=== PATIENT | male | born 1950 | race Caucasian/White ===

== ENCOUNTER 2018-10-22 17:44 | Emergency (ER) | payer MEDICARE, SELFPAY ==
[2018-10-22 17:51] VITALS: BP 118/76; PULSE 66; RESP 20; TEMP 35.6; O2SAT 97; BMI 25.1
--- NOTE | 2018-10-22 18:10 | PC.NURSE ---
Pt made aware of no CT at this facility. Pt has had this problem for months and came to ED for CT as has difficulty scheduling via [facility]. Pt states he does not want to wait and will return another day. Reviewed to return for any increased difficulty / concerns or worsening condition.
== END 2018-10-22 18:12 | disposition left against medical advice (07) ==
PROVIDERS: Emergency Provider Emergency Medicine
DX: Z53.21 Procedure and treatment not carried out due to patient leaving prior to being seen by health care provider (principal)
CPT/HCPCS: 99281

== ENCOUNTER 2018-10-23 14:53 | Emergency (ER) | payer MEDICARE, SELFPAY ==
[2018-10-23 14:57] VITALS: BP 111/76; PULSE 69; RESP 15; TEMP 36.6; O2SAT 96; BMI 25.1
--- NOTE | 2018-10-23 16:35 | PC.NURSE ---
States his PMD called and told him he has an appointment tomorrow for CT
== END 2018-10-23 16:37 | disposition left against medical advice (07) ==
PROVIDERS: Emergency Provider Emergency Medicine
DX: Z53.21 Procedure and treatment not carried out due to patient leaving prior to being seen by health care provider (principal)
CPT/HCPCS: 99282

== ENCOUNTER 2019-03-23 12:25 | Emergency (ER) | payer MEDICARE, OTHER, SELFPAY ==
[2019-03-23] VITALS (8 sets, daily range): BP systolic 98–110; BP diastolic 60–72; PULSE 47–57; RESP 12–20; TEMP 36.6; O2SAT 96–99
--- NOTE | 2019-03-23 12:31 | DI.RAD.S_ITS ---
PROCEDURE: XR CHEST 1V INDICATIONS: chest pain TECHNIQUE: One view of the chest was acquired. COMPARISON: None. FINDINGS: Surgical changes and devices: None. Lungs and pleura: Increased attenuation is identified at the right lung base. There slight blunting of the right costophrenic angle. Linear interstitial markings are evident at the left lung base. There is no pneumothorax or large effusion. Mediastinum: Mediastinal contours appear normal. Heart size is normal. There is aortic atherosclerosis. Bones and chest wall: No suspicious bony lesions. Multiple right rib deformities are evident. Calcifications within the right hemithorax appear to be present. Overlying soft tissues appear unremarkable. IMPRESSION: 1. Increased attenuation within the lung bases probably is related to atelectasis and/or scarring. A superimposed right basilar pneumonia is difficult to exclude. 2. Trace right sided pleural effusion. 3. Probable chronic right rib fractures. Superimposed calcified pleural plaques are difficult to exclude. Dictated by: Paul Page M.D. on 03/23/2019 at 12:13 Approved by: Paul Page M.D. on 03/23/2019 at 12:15
--- NOTE | 2019-03-23 12:39 | ED.CHESTPAIN ---
HPI - Chest Pain General Chief Complaint: Chest Pain Stated Complaint: Chest discomfort & diaphoretic Time Seen by Provider: 03/23/19 12:31 Source: patient and EMS Mode of arrival: EMS Limitations: no limitations History of Present Illness HPI narrative: Patient is 68-year-old male with history TBI presenting with not feeling right. He states he woke up this morning fine however around 9:00 a.m. he was extremely tired he laid down to take a nap. He woke up he was diaphoretic he noticed some chest heaviness and that his speech might be a little bit off. He spoke to his daughter on the phone who said that his speech was normal. EMS arrived he got aspirin and nitro EN his chest heaviness is gone. He continues to say his speech is not normal but is A&O x3 and has clear speech. He is able to follow directions. He has no numbness tingling or weakness in any of his extremities no facial drooping. Denies any shortness of breath or nausea. MD complaint: chest pain Related Data Home Medications Medication Instructions Recorded Confirmed sildenafil 0 mg PO DIRECTED 03/23/19 Allergies Allergy/AdvReac Type Severity Reaction Status Date / Time No Known Drug Allergies Allergy Verified 03/23/19 12:29 Review of Systems Review of Systems ROS Unobtainable: All systems reviewed & are unremarkable except as noted in HPI and below Constitutional Constitutional: Denies chills, Denies fever(s), Denies lethargy and Reports weakness Eyes Eyes: Denies change in vision, Denies eye discharge, Denies irritation and Denies loss of vision ENT Ears, Nose, Mouth, and Throat: Denies change in voice, Denies neck pain and Denies sore throat Cardiovascular Cardiovascular: Reports as per HPI, Reports chest pain, Denies dyspnea and Denies dyspnea on exertion Respiratory Respiratory: Denies cough, Denies dyspnea, Denies dyspnea on exertion and Denies wheezing Gastrointestinal Gastrointestinal: Denies abdominal pain, Denies change in bowel habits, Denies diarrhea, Denies nausea and Denies vomiting Genitourinary Genitourinary: Denies hematuria, Denies flank pain, Denies urinary incontinence and Denies urinary urgency Musculoskeletal Musculoskeletal: Denies neck pain Integumentary/Breasts Skin/Breast: Denies pruritus, Denies erythema, Denies rash and Denies wounds Neurologic Neurologic: Denies loss of vision and Reports weakness Allergic/Immunologic Allergic/Immunologic: Denies wheezing [facility] Medical History Hypertension (Acute) Traumatic brain injury (Acute ~1986) Social History Smoking Status: Never smoker Social History Smoking Status: Never smoker Exam Initial Vital Signs Initial Vital Signs: Vital Signs Temperature 97.8 F 03/23/19 12:25 Pulse Rate 57 L 03/23/19 12:25 Respiratory Rate 18 03/23/19 12:25 Blood Pressure 102/72 03/23/19 12:25 Pulse Oximetry 99 03/23/19 12:25 GENERAL: Alert pleasant male diaphoretic but in no acute distress HEENT: Head atraumatic,EOMI, pupils reactive, face symmetric, moist mucous membranes CARDIOVASCULAR: Regular rate and rhythm without murmurs, rubs or gallops. RESPIRATORY: Breath sounds equal bilaterally, no wheezes rales or rhonchi. ABDOMEN: Soft, nontender. Normoactive bowel sounds all 4 quadrants. No guarding or rebound. EXTREMITIES: Normal range of motion, no clubbing or edema. Neurovascularly intact NEUROLOGICAL: Alert and oriented x4.Normal gait and speech. Cranial nerves II through XII grossly intact. Good uckzpf-[id number]-ecew, good noer-us-yhui, strength equal bilaterally, no dysarthria or aphasia, sensation in tact to soft touch bilaterally, no visual changes, no facial droop SKIN: Warm, dry, no laceration, no petechiae, no rashes or lesions. Scores HEART Score Heart Score history: Slightly Suspicious Heart Score EKG: Normal Heart Score Age: > or = 65 years old Heart Score risk factors: No known risk factors Heart Score troponin: < or = to normal limit Heart Score Total: 2 NIH Stroke Scale Level of Conciousness: Alert, keenly responsive Ask month/age: Answers both questions correctly. Open/close eyes, close hand: Performs both tasks correctly Best gaze horizontal: Normal Visual bee: No visual loss Facial palsy: Normal symetrical movement Left arm drift: No drift for full 10 sec Right arm drift: No drift for full 10 sec Left leg drift: No drift for full 10 sec Right leg drift: No drift for full 10 sec Limb ataxia: Absent Sensory on face/arms/legs: Normal, no sensory loss Best language: No aphasia, normal Dysarthria: Normal Extinction or inattention: No abnormality Total NIH Stroke scale score: 0 Course Orders Ordered: ED Orders 03/23/19 12:27 B Type Natriuretic Peptide Stat Complete Blood Count AUTO DIFF Stat Comprehensive Metabolic Panel Stat Lipase Stat Partial Thromboplastin Time Stat Prothrombin Time INR Stat Troponin & CK Cardiac Panel Stat 03/23/19 12:29 EKG-12 Lead Stat 03/23/19 12:31 XR chest 1V Stat 03/23/19 12:50 CT head/brain wo con Stat 03/23/19 15:29 Troponin I Stat Discontinued Medications Sodium Chloride (Normal Saline 0.9%) 1,000 mls @ 150 mls/hr IV CONT JEANETTE Last Infusion: 03/23/19 15:46 Dose: 0 mls/hr Documented by: Admin: 03/23/19 13:16 Dose: 150 mls/hr Documented by: SCANAPO Vital Signs Vital signs: Vital Signs - 8 hr 03/23/19 12:25 03/23/19 12:30 03/23/19 13:00 Temperature 97.8 F Pulse Rate 57 L 57 L 56 L Respiratory Rate 18 14 20 Blood Pressure 102/72 Blood Pressure [Right Arm] 101/68 98/65 Pulse Oximetry 99 98 97 03/23/19 13:50 03/23/19 14:15 03/23/19 15:00 Temperature Pulse Rate 54 L 52 L 47 L Respiratory Rate 17 19 12 Blood Pressure Blood Pressure [Right Arm] 104/64 106/60 102/70 Pulse Oximetry 96 98 98 03/23/19 15:45 03/23/19 16:45 Temperature Pulse Rate 48 L 50 L Respiratory Rate 17 16 Blood Pressure Blood Pressure [Right Arm] 110/68 103/68 Pulse Oximetry 99 99 MDM - Chest Pain Lab Data Attestation: I reviewed the patient's lab results. Result diagrams: 03/23/19 12:27 03/23/19 12:27 Labs: Lab Results 03/23/19 03/23/19 03/23/19 Range/Units 12:27 12:27 12:27 WBC 3.9 L (4.5-11.0) X10^3/uL RBC 4.52 (4.5-5.9) X10^6/uL Hgb 14.8 (13.5-17.5) g/dL Hct 42.6 (41-53) % MCV 94.3 (80-100) fL MCH 32.8 (26-34) PG MCHC 34.7 (30-36) % RDW 13.6 (11.6-14.8) % Plt Count 212 (150-400) X10^3/uL Neut % (Auto) 59.7 (50-75) % Lymph % (Auto) 26.2 (25-40) % [place] % (Auto) 8.9 (3-14) % Eos % (Auto) 4.3 H (2-4) % Baso % (Auto) 0.9 (0-2) % Neut # (Auto) 2400 (1826-1077) /uL Lymph # (Auto) 1000 L (9080-4417) /uL [place] # (Auto) 400 (0-900) /uL Eos # (Auto) 200 (0-450) /uL Baso # (Auto) 0 (0-100) /uL PT 11.5 (10.1-12.7) SECONDS INR 1.0 (0.9-1.3) APTT 30 (26.4-36.2) SECONDS Sodium 138 (137-145) mmol/L Potassium 4.7 (3.4-5.1) mmol/L Chloride 103 (98-107) mmol/L Carbon Dioxide 28 (22-32) mmol/L BUN 24 H (9-20) mg/dL Creatinine 0.80 (0.66-1.25) mg/dL Estimated GFR > 60.0 (>60) mL/min BUN/Creatinine Ratio 30.0 H (6-22) Glucose 94 (80-110) mg/dL Calcium 9.0 (8.4-10.2) mg/dL Total Bilirubin 0.9 (0.2-1.3) mg/dL AST 39 (17-59) IU/L ALT 23 (21-72) IU/L Alkaline Phosphatase 103 (38-126) U/L Total Creatine Kinase 400 H (55-170) U/L CK-MB (CK-2) 4.06 H (<2.37) ng/mL CK-MB (CK-2) Rel Index 1.0 L (1.5-5.0) % Troponin I < 0.012 (0.01-0.034) ng/mL B-Natriuretic Peptide < 100 (<100) Total Protein 7.0 (6.3-8.2) g/dL Albumin 4.0 (3.5-5.0) g/dL Globulin 3.0 (1.7-4.1) g/dL Albumin/Globulin Ratio 1.3 (1.0-2.8) Lipase 241 (23-300) U/L 03/23/19 Range/Units 15:29 WBC (4.5-11.0) X10^3/uL RBC (4.5-5.9) X10^6/uL Hgb (13.5-17.5) g/dL Hct (41-53) % MCV (80-100) fL MCH (26-34) PG MCHC (30-36) % RDW (11.6-14.8) % Plt Count (150-400) X10^3/uL Neut % (Auto) (50-75) % Lymph % (Auto) (25-40) % [place] % (Auto) (3-14) % Eos % (Auto) (2-4) % Baso % (Auto) (0-2) % Neut # (Auto) (9027-3186) /uL Lymph # (Auto) (5462-7899) /uL [place] # (Auto) (0-900) /uL Eos # (Auto) (0-450) /uL Baso # (Auto) (0-100) /uL PT (10.1-12.7) SECONDS INR (0.9-1.3) APTT (26.4-36.2) SECONDS Sodium (137-145) mmol/L Potassium (3.4-5.1) mmol/L Chloride (98-107) mmol/L Carbon Dioxide (22-32) mmol/L BUN (9-20) mg/dL Creatinine (0.66-1.25) mg/dL Estimated GFR (>60) mL/min BUN/Creatinine Ratio (6-22) Glucose (80-110) mg/dL Calcium (8.4-10.2) mg/dL Total Bilirubin (0.2-1.3) mg/dL AST (17-59) IU/L ALT (21-72) IU/L Alkaline Phosphatase (38-126) U/L Total Creatine Kinase (55-170) U/L CK-MB (CK-2) (<2.37) ng/mL CK-MB (CK-2) Rel Index (1.5-5.0) % Troponin I < 0.012 (0.01-0.034) ng/mL B-Natriuretic Peptide (<100) Total Protein (6.3-8.2) g/dL Albumin (3.5-5.0) g/dL Globulin (1.7-4.1) g/dL Albumin/Globulin Ratio (1.0-2.8) Lipase (23-300) U/L Urine Dip Bedside Urine Glucose Negative Bedside Urine Bilirubin - Negative Bedside Urine Ketone - Negative Urine Specific [place] 1.020 Bedside Urine Occult Blood - Negative Bedside Urine pH 6.0 Bedside Urine Protein - Negative Bedside Urine Urobilinogen - Negative Bedside Urine Nitrite - Negative Bedside Urine Leukocytes - Negative Esterase Imaging Data CT scan - head: Radiologist's impression: PROCEDURE: CT HEAD/BRAIN WO CON INDICATIONS: feels like speech is off. hx of TBI TECHNIQUE: Noncontrast 4.5 mm thick angled axial sections acquired from the foramen magnum to the vertex, with coronal and sagittal reformats. For radiation dose reduction, the following was used: automated exposure control, adjustment of mA and/or kV according to patient size. COMPARISON: None. FINDINGS: Image quality: Excellent. CSF spaces: Basal cisterns are patent. No extra-axial fluid collections. Ventricles are slightly prominent in size with corresponding mild parenchymal volume loss. Brain: No midline shift. No intracranial masses or hemorrhage. Luna-white matter interface is normal. Subtle areas of low attenuation are seen within the periventricular white matter of the supratentorial brain. Skull and face: There appear to be postoperative changes of the left frontal/temporal. Calvarium and visualized facial bones are intact, without suspicious lesions. Sinuses: Visualized sinuses mild mucosal thickening of the metatarsals is present. Otherwise, the imaged paranasal sinuses and mastoid air cells are clear. IMPRESSION: 1. No acute intracranial hemorrhage. 2. Chronic small vessel ischemic changes and parenchymal volume loss. Dictated by: Paul Page M.D. on 03/23/2019 at 12:15 Chest x-ray: Radiologist's impression: PROCEDURE: XR CHEST 1V INDICATIONS: chest pain TECHNIQUE: One view of the chest was acquired. COMPARISON: None. FINDINGS: Surgical changes and devices: None. Lungs and pleura: Increased attenuation is identified at the right lung base. There slight blunting of the right costophrenic angle. Linear interstitial markings are evident at the left lung base. There is no pneumothorax or large effusion. Mediastinum: Mediastinal contours appear normal. Heart size is normal. There is aortic atherosclerosis. Bones and chest wall: No suspicious bony lesions. Multiple right rib deformities are evident. Calcifications within the right hemithorax appear to be present. Overlying soft tissues appear unremarkable. IMPRESSION: 1. Increased attenuation within the lung bases probably is related to atelectasis and/or scarring. A superimposed right basilar pneumonia is difficult to exclude. 2. Trace right sided pleural effusion. 3. Probable chronic right rib fractures. Superimposed calcified pleural plaques are difficult to exclude. Dictated by: Paul Page M.D. on 03/23/2019 at 12:13 ECG Data Attestation: I personally reviewed and interpreted this ECG as follows: Prior ECG tracings: not available for review Interpretation: ekg 1. Normal sinus rhythm rate 54 p.r. interval 197 QRS [address] elevations or depressions no T-wave inversions no priors to compare EKG 2. Sinus rhythm rate 50 p.r. interval to await no changes from prior MDM Narrative Medical decision making narrative: HAS BEEN CHEST PAIN-FREE SINCE HE HAS BEEN IN THE EMERGENCY DEPARTMENT. HE IS OVERALL FEELING BETTER. REPEAT TROPONIN IS NEGATIVE. I HAVE BEEN ON THE PHONE A COUPLE TIMES WITH DAUGHTER. HIS PATIENT SAYS THAT HE HAS HAD INTERMITTENT CHEST PAIN DAUGHTER SAYS IT CERTAINLY DOES NOT STOP HIM FROM EXERCISING OR DOING YD WORK OR ANY OF HIS DAILY ACTIVITIES. AN OUTPATIENT STRESS TEST IS ALREADY IN THE WORKS. AT THIS TIME I FEEL PATIENT CAN BE DISCHARGED HOME. Discharge Plan Departure Patient Disposition: Home Clinical Impression: Atypical chest pain Discharge Date/Time: 03/23/19 17:12 Instructions: DI for Atypical Chest Pain Activity Restrictions/Additional Instructions: *You have been diagnosed with atypical chest *What to do: You still need more testing done on her heart such as a stress test her nuclear stress test. This can be set up with her PCP. *Continue to take medications as directed Aspirin 81 mg daily *Follow up with your primary care provider in 2-3 days *Return to ER if you should have increasing chest discomfort that stops her daily activities, worsening shortness of breath or any new, worsening or concerning symptoms Prescriptions: No Action sildenafil 50 mg tablet 0 mg PO DIRECTED RF: 0 Referrals: Edie Hirsch PA-C [Non-Staff] -
[2019-03-23 12:45] LABS: Add Manual Diff / Slide Review NO; Basophils Absolute Auto 0 /uL (0-100); Basophils Percent Auto 0.9 % (0-2); Eosinophils Absolute Auto 200 /uL (0-450); Eosinophils Percent Auto 4.3 % (2-4); Hematocrit 42.6 % (41-53); Hemoglobin 14.8 g/dL (13.5-17.5); Lymphocytes Absolute Auto 1000 /uL (1100-4500); Lymphocytes Percent Auto 26.2 % (25-40); Mean Corpuscular HGB Conc 34.7 % (30-36); Mean Corpuscular Hemoglobin 32.8 PG (26-34); Mean Corpuscular Volume 94.3 fL (80-100); Monocytes Absolute Auto 400 /uL (0-900); Monocytes Percent Auto 8.9 % (3-14); Neutrophils Absolute Auto 2400 /uL (1500-7000); Neutrophils Percent Auto 59.7 % (50-75); Platelet Count 212 X10^3/uL (150-400); Red Blood Cell Count 4.52 X10^6/uL (4.5-5.9); Red Cell Distribution Width 13.6 % (11.6-14.8); White Blood Cell Count 3.9 X10^3/uL (4.5-11.0)
[2019-03-23 12:50] LABS: Prothrombin Time 11.5 SECONDS (10.1-12.7)
--- NOTE | 2019-03-23 12:50 | DI.CT.S_ITS ---
PROCEDURE: CT HEAD/BRAIN WO CON INDICATIONS: feels like speech is off. hx of TBI TECHNIQUE: Noncontrast 4.5 mm thick angled axial sections acquired from the foramen magnum to the vertex, with coronal and sagittal reformats. For radiation dose reduction, the following was used: automated exposure control, adjustment of mA and/or kV according to patient size. COMPARISON: None. FINDINGS: Image quality: Excellent. CSF spaces: Basal cisterns are patent. No extra-axial fluid collections. Ventricles are slightly prominent in size with corresponding mild parenchymal volume loss. Brain: No midline shift. No intracranial masses or hemorrhage. Luna-white matter interface is normal. Subtle areas of low attenuation are seen within the periventricular white matter of the supratentorial brain. Skull and face: There appear to be postoperative changes of the left frontal/temporal. Calvarium and visualized facial bones are intact, without suspicious lesions. Sinuses: Visualized sinuses mild mucosal thickening of the metatarsals is present. Otherwise, the imaged paranasal sinuses and mastoid air cells are clear. IMPRESSION: 1. No acute intracranial hemorrhage. 2. Chronic small vessel ischemic changes and parenchymal volume loss. Dictated by: Paul Page M.D. on 03/23/2019 at 12:15 Approved by: Paul Page M.D. on 03/23/2019 at 12:18
[2019-03-23 12:53] LABS: PTT Partial Thromboplastin Tim 30 SECONDS (26.4-36.2)
[2019-03-23 13:02] LABS: Sodium 138 mmol/L (137-145)
[2019-03-23 13:05] LABS: Alanine Aminotransferase 23 IU/L (21-72); Albumin Globulin Ratio 1.3 (1.0-2.8); Alkaline Phosphatase 103 U/L (38-126); Aspartate Aminotransferase 39 IU/L (17-59); Bilirubin Total 0.9 mg/dL (0.2-1.3); Blood Urea Nitrogen 24 mg/dL (9-20); Carbon Dioxide 28 mmol/L (22-32); Chloride 103 mmol/L (98-107); Creatine Kinase 400 U/L (55-170); Estimated Glomerular Filt Rate > 60.0 mL/min (>60); Glucose 94 mg/dL (80-110); Lipase 241 U/L (23-300)
[2019-03-23 13:10] LABS: B Type Natriuretic Peptide < 100 (<100)
[2019-03-23 13:16] LABS: Troponin I < 0.012 ng/mL (0.01-0.034)
[2019-03-23] MEDS: SODIUM CHLORIDE 0.9% 1,000 ML 150 ML IV (13:16)
[2019-03-23 13:22] LABS: HEMOLYSIS 70 (0-50)
[2019-03-23 13:23] LABS: Potassium 4.7 mmol/L (3.4-5.1)
[2019-03-23 14:03] LABS: Creatine Kinase MB 4.06 ng/mL (<2.37)
[2019-03-23 15:58] LABS: Troponin I < 0.012 ng/mL (0.01-0.034)
--- NOTE | 2019-03-23 16:01 | PC.NURSE ---
Repeat trop drawn. pt resting comfortably in stretcher, NAD. remains on cardiac monitoring. denies CP SOB at this time
== END 2019-03-23 17:12 | disposition home or self-care (01) ==
PROVIDERS: Emergency Provider Emergency Medicine
DX: R07.89 Other chest pain (principal); Z87.820 Personal history of traumatic brain injury; R47.9 Unspecified speech disturbances
CPT/HCPCS: 36415; 70450; 71045; 80053; 81003; 82550; 82553; 83690; 83880; 84484; 85025; 85610; 85730; 93005; 96360; 96361; 99284; 99285

== ENCOUNTER → 2019-05-01 07:38 | Outpatient (CLI) | payer MEDICARE, SELFPAY ==
--- NOTE | 2019-05-01 08:50 | PM.TREADMILL ---
Cardiac Stress Test Report Referral & Results Date Patient Seen: 05/01/19 Time Patient Seen: 08:30 Requesting provider: Edie Hirsch Indication: Chest pain, syncope Rest ECG: NSR Procedure Note: Today following both written and verbal informed consent the patient was exercised according to a standard King protocol patient went for a total of 13 minutes 18 seconds achieving a maximum heart rate of 140 maximum systolic blood pressure of 158. This is approximately 14.8 METs. Exercise was terminated at this point because of fatigue. Patient was also given Cardiolite through a previously started Hep-Lock IV by the vibration technician approximately 1 minute prior to the cessation of exercise. No signs or symptoms of angina during the test. No changes in rhythm. Excellent exercise capacity. Impressive aerobic conditioning based on HR/BP response to exercise. Impression: Low probability for ischemia. Will await perfusion imaging. Please note: Actual ECG tracings can be found in the PACS system.
--- NOTE | 2019-05-04 17:54 | DI.NM.S_ITS ---
DATE OF SERVICE: 05/01/2019 PROCEDURE: Exercise perfusion study. INDICATIONS: Chest pain. RADIOPHARMACEUTICAL: 26.4mCi technetium-99m Myoview IV was injected at stress and 24.2 mCi technetium-99m Myoview IV was injected at rest. CARDIAC STRESS: Patient walked on King protocol for about 30 minutes and 18 seconds and achieved 93% of target heart rate with normal blood pressure response, 14.8 METs of workload. Baseline EKG revealed sinus rhythm. During stress, there were no ischemic changes. Patient felt fatigue at the peak of exercise. There were no significant arrhythmias. RAW DATA: There is increased subdiaphragmatic activity and hotspot near the inferior borders. GATED STUDY: Stress LV ejection fraction 70% without any obvious wall motion abnormalities. Resting end-diastolic volume is 119 mL. No transient ischemic dilatation. TID ratio is 0.83, which is within normal limits. Lung/heart ratio is 0.31, which is within normal limits. MYOCARDIAL PERFUSION SCAN: Stress supine images revealed [id number]- sized mildly decreased perfusion of inferior wall and inferior apex. Resting supine images revealed mildly decreased perfusion of inferior apex. During stress prone images, significant improvement of the inferior wall and inferior apical defect seen. There was only minimal in inferior apical defect left. No reversible ischemia. CONCLUSION: I will call this study likely a normal myocardial perfusion study with evidence of tissue attenuation artifact which got improved during prone images as stated above. During raw data, an increased subdiaphragmatic activity seen near the inferior border of the heart. Patient has excellent exercise tolerance. He walked on King protocol for 13 minutes 18 seconds. Normal hemodynamic response and 14.8 METs of workload. No ischemic EKG changes. Overall, this is a low-risk myocardial perfusion scan. Jagdeep Marquis - ANA/nagi/ab doc#: [id number]/job#: [id number] dd: 05/04/2019 17:30:00 dt: 05/04/2019 17:42:00 DICTATING MD/COPIES TO: Xenia Andersen MD COPIES MNE: AMEYA
== END ==
PROVIDERS: Visit Provider Physician Assistant
DX: R07.9 Chest pain, unspecified (principal); R55 Syncope and collapse
CPT/HCPCS: 78452; 93016; 93017; 93018; A9502

== ENCOUNTER → 2019-06-12 15:59 | Outpatient (CLI) | payer MEDICARE, SELFPAY ==
--- NOTE | 2019-06-12 | DI.ECHO.S_ITS ---
[facility]---------+ [facility] +---------+ : : [address] : : : : [id number] : : : : Phone: [phone] Echocardiogram Report + + :Name: ALESSANDRA ELLINGTON Study Date: 06/12/2019 Height: 70 in : :[facility] Weight: 162 lb : : Gender: Male BSA: 1.9 m2 : :: 1950 Age: 68 yrs BP: 110/64 mmHg: :Reason For Study: Murmur : : Performed By: Katie Liriano : :Referring: EMILIE RAINES : + + Interpretation Summary 1) Normal left ventricular thickness, size, wall motion, and systolic function (EF 60-65%). 2) Normal right ventricular size and function. 3) No significant valvular abnormalities. 4) No prior Echo available for comparison. Procedure: A two-dimensional transthoracic echocardiogram with color flow and Doppler was performed. The study quality was technically adequate. There is no prior echocardiogram noted for this patient. The patient was in normal sinus rhythm during the exam. Left Ventricle: The left ventricle is normal in size, wall thickness, and systolic function without any focal wall motion abnormalities. The ejection fraction is estimated to be 60-65%. Diastolic parameters suggest probable normal left ventricular diastolic function and normal filling pressures. Right Ventricle: The right ventricle grossly appears normal in size with probable normal systolic function. Atria: The left atrial size is normal. Right atrial size is normal. The interatrial septum is intact with no evidence for an atrial septal defect. Mitral Valve: The mitral valve is grossly normal. There is no mitral regurgitation noted. Aortic Valve: The aortic valve opens well. The aortic valve is trileaflet. There is no aortic valve stenosis. No aortic regurgitation is present. Tricuspid Valve: The tricuspid valve is normal in structure and function. There is a trace or physiologic amount of tricuspid regurgitation. The right ventricular systolic pressure is estimated to be at least 16 mmHg based on an estimated right atrial pressure of 3 mm Hg. Pulmonic Valve: The pulmonic valve is not well visualized. Great Vessels: The aortic root is normal size. The ascending aorta could not be visualized. The aortic arch is at the upper limits of normal in size. Inspiratory collapse cannot be assessed because of mechanical ventilation, thus CVP cannot be estimated.. Pericardium/ Pleura There is no pericardial effusion. There is no pleural effusion. MMode/2D Measurements & Calculations LVIDd: 3.7 cm Ao root diam: 3.7 cm LVIDs: 2.0 cm Aortic Jxn: 3.2 cm FS: 45.5 % Ao Arch Diam (Prox Trans): 3.4 cm EPSS: 0.55 cm IVSd: 0.76 cm LVPWd: 0.82 cm LV gamino. diameter/BSA (cm/m^2): 1.9 LV sys. diameter/BSA (cm/m^2): 1.1 LA dimension: 3.6 cm RA long axis: 4.4 cm LA A2 area: 18.6 cm2 RA area: 13.9 cm2 LA A4 area: 14.9 cm2 RA vol: 36.9 ml LA length (vol): 5.1 cm RA : 19.4 ml/m2 LA vol: 46.2 ml IVC diam: 2.0 cm LA vol index: 24.2 ml/m2 RVDd major: 5.2 cm RVD1 (basal): 4.6 cm RVD2 (mid): 3.8 cm Doppler Measurements & Calculations Ao V2 max: 138.0 cm/sec MV E max tarik: 75.0 cm/sec Ao V2 mean: 92.7 cm/sec MV A max tarik: 104.9 cm/sec Ao max P.6 mmHg MV E/A: 0.71 Ao mean P.0 mmHg Med Peak E' Tarik: 6.2 cm/sec Ao V2 VTI: 29.8 cm E/E' med: 12.1 Lat Peak E' Tarik: 8.1 cm/sec E/E' lat: 9.3 E/e' average: 10.7 MV dec time: 0.35 sec MV P1/2t: 101.0 msec TR max tarik: 178.5 cm/sec MV P1/2t max tarik: 74.6 cm/sec TR max P.7 mmHg MVA(P1/2t): 2.2 cm2 Reading Physician:05:50 PM
== END ==
PROVIDERS: PCP Physician Assistant; Visit Provider Physician Assistant
DX: R01.1 Cardiac murmur, unspecified (principal)
CPT/HCPCS: 93306

== ENCOUNTER 2022-06-20 13:34 | Emergency (ER) | payer OTHER, MEDICARE, SELFPAY ==
[2022-06-20] VITALS (30 sets, daily range): BP systolic 70–116; BP diastolic 40–78; PULSE 47–73; RESP 18–37; TEMP 36.3–36.5; O2SAT 95–99; BMI 28.7
--- NOTE | 2022-06-20 13:34 | DI.RAD.S_ITS ---
PROCEDURE: XR WRIST LT MIN 3V INDICATIONS: chainsaw to wrist TECHNIQUE: 3 views of the wrist were acquired. COMPARISON: Outside Film, NM, NM BONE SCAN WHOLE BODY, 02/15/2021, 12:22. FINDINGS: Bones: No fractures or dislocations. No suspicious bony lesions. Soft tissues: No suspicious soft tissue calcifications. There is soft tissue injury in the anterior aspect of the wrist. A small soft tissue foreign body is noted adjacent to the radial styloid. IMPRESSION: 1. No definitive acute osseous injuries. 2. Soft tissue injury in the anterior aspect of the wrist. 3. A small subcutaneous foreign body in the radial aspect of the wrist adjacent to the radial styloid. Dictated by: Mariama Haas M.D. on 06/20/2022 at 14:44 Approved by: Mariama Haas M.D. on 06/20/2022 at 14:46
--- NOTE | 2022-06-20 13:38 | PC.NURSE ---
Surgery and Anesthesiology arrived prior to patient in the emergency department
--- NOTE | 2022-06-20 13:44 | ED.UPPEXIN ---
HPI - Extremity Injury (Upper) General Chief Complaint: Trauma Stated Complaint: full trauma Time Seen by Provider: 06/20/22 13:34 History of Present Illness HPI narrative: 71-year-old male nonsmoker with history of TBI presents by [facility] as a full trauma secondary to abnormal vital signs after a traumatic injury to his left wrist with a chain saw just prior to arrival. He was in his normal state of health and denies any prodromal symptoms. He states the chainsaw kicked and hit him in the left wrist. There is report of loss of approximately 500 cc of dark blood on scene, no pulsatile elements noted. It is unclear when his last tetanus was and he denies any allergies. Surgery, anesthesia and all elements of trauma team on scene prior to patient's arrival. Patient taken directly to trauma 2. Secondary to blood pressures noted in the 70s and 80s packed cells were ordered, this seems to normalized relatively quickly after primary and secondary surveys. Patient has full range of motion and sensation in his left wrist. This was accidental and he denies any other injury. He has no head neck or back pain. Denies any chest pain shortness of breath or cough. He has no abdominal pain but is feeling slightly nauseated. Related Data Home Medications Medication Instructions Recorded Confirmed sildenafil 50 mg tablet 0 mg PO DIRECTED 03/23/19 Previous Rx's Medication Instructions Recorded cephalexin 500 mg capsule 500 mg PO Q6H 7 days #28 caps 06/20/22 Allergies Allergy/AdvReac Type Severity Reaction Status Date / Time No Known Drug Allergies Allergy Verified 03/23/19 12:29 Review of Systems Review of Systems Narrative: GENERAL: See HPI HEENT: Denies sinus pain, ear pain, sore throat, difficulty swallowing, dizziness. RESPIRATORY: Denies dyspnea, cough, wheezing, hemoptysis, sputum. CARDIOVASCULAR: see HPI GASTROINTESTINAL: Denies nausea, vomiting, abdominal pain, diarrhea, constipation, melena. : Denies dysuria, frequency, incontinence, hematuria, urinary retention. MUSCULOSKELETAL: see HPI SKIN: see HPI NEUROLOGIC: Denies weakness, headache, numbness, change in speech, confusion, seizures, incoordination. PSYCHIATRIC: No concerning psychosocial issues. 12 point review of systems is negative except for those stated above Patient History Medical History (Updated 06/20/22 @ 15:36 by Scott Estevez DO) Hypertension Traumatic brain injury (~1986) Social History Smoking Status: Never smoker Smoking Status: Never smoker alcohol intake frequency: other Substance Use Type: does not use Exam Narrative Exam Narrative: GENERAL: [71] year old patient appears stated age. Well-developed patient, in mild distress. Somewhat pale and diaphoretic, GCS 14 (slightly confused) HEAD: Atraumatic. Normocephalic. EYES: Pupils equal round and reactive. Extraocular motions intact. No scleral icterus. No injection or drainage. ENT: Nose without bleeding, purulent drainage. Throat without erythema, tonsillar hypertrophy or exudate. Airway patent. NECK: Trachea midline. Non tender CARDIOVASCULAR: Bradycardic but regular rhythm without murmurs, gallops, or rubs. RESPIRATORY: Clear to auscultation. Breath sounds equal bilaterally. No wheezes, rales, or rhonchi. GASTROINTESTINAL: Abdomen soft, non-tender, nondistended. EXTREMITIES: 5 cm deep full-thickness laceration on volar aspect of left wrist, obvious tendinous involvement (likely flexor carpi ulnaris), no arterial involvement, no obvious bony involvement patient has full. Patient has full ROM of all fingers, no sensory deficit. Has full painless ROM at wrist with flexion, extension, as well as ulnar and radial deviation. BACK: Nontender without deformity or crepitance. No flank tenderness. NEURO: AOx3. SKIN: No rash or erythema of visible areas Initial Vital Signs Initial Vital Signs: Vital Signs Temperature 97.4 F L 06/20/22 13:30 Pulse Rate 50 L 06/20/22 13:30 Respiratory Rate 20 06/20/22 13:30 Blood Pressure 70/40 L 06/20/22 13:30 Pulse Oximetry 99 06/20/22 13:30 Oxygen Delivery Method 06/20/22 13:30 Procedures Orthopedic Splinting/Casting Injury #1: Side: left Upper Extremity Injury Location: wrist Upper Extremity Immobilizer: volar splint Post splinting neuro exam: intact Post splinting vascular exam: intact Placed by: Nursing Course Orders Ordered: ED Orders 06/20/22 13:34 XR wrist LT min 3V Stat 06/20/22 13:35 Packed Cells Stat Type and Screen Stat EKG-12 Lead Stat 06/20/22 13:37 Complete Blood Count AUTO DIFF Stat Comprehensive Metabolic Panel Stat Ethanol (ETOH) Stat Lactate (Lactic Acid) Stat Lipase Stat Partial Thromboplastin Time Stat Prothrombin Time INR Stat 06/20/22 13:45 Urine Drug Screen, Rapid Stat Discontinued Medications Diphtheria/Tetanus/Acell Pertussis (Tet,Diph,Pertuss(Acell),Vac/Pf 0.5 Ml Syringe) 0.5 ml IM .ONCE ONE Stop: 06/20/22 13:35 Last Admin: 06/20/22 13:59 Dose: 0.5 ml Documented By: JESUS Tranexamic Acid 1,000 mg/ (Sodium Chloride) 100 mls @ 200 mls/hr IV NOW ONE Stop: 06/20/22 14:03 Last Infusion: 06/20/22 14:00 Dose: 0 mls/hr Documented By: Infusion: 06/20/22 14:00 Dose: 0 mls/hr Documented By: Admin: 06/20/22 13:45 Dose: 200 mls/hr Documented By: JESUS Cefazolin Sodium 1 gm/ Sodium (Chloride) 100 mls @ 200 mls/hr IV NOW ONE Stop: 06/20/22 14:05 Last Infusion: 06/20/22 14:49 Dose: 0 mls/hr Documented By: Admin: 06/20/22 14:01 Dose: 200 mls/hr Documented By: JESUS Consultations Consultation #1: Trauma surgery (Tisha) in department during arrival and for primary exam Consultation #2: Discussed with on-call orthopedist (Kaylynn). Recommends closure, antibiotics, tetanus, splint with follow-up Vital Signs Vital signs: Vital Signs - 8 hr 06/20/22 13:44 06/20/22 13:45 06/20/22 13:45 Temperature Pulse Rate 50 L 49 L Respiratory Rate 27 H 26 H Blood Pressure 93/54 L Pulse Oximetry 97 97 Oxygen Delivery Method 06/20/22 13:49 06/20/22 13:50 06/20/22 13:30 Temperature 97.4 F L Pulse Rate 52 L 50 L Respiratory Rate 25 H 20 Blood Pressure 96/57 L 70/40 L Pulse Oximetry 98 99 Oxygen Delivery Method Room Air 06/20/22 14:05 06/20/22 13:30 06/20/22 13:50 Temperature 97.7 F Pulse Rate 56 L Respiratory Rate 26 H Blood Pressure Pulse Oximetry 97 Oxygen Delivery Method Room Air 06/20/22 13:55 06/20/22 13:55 06/20/22 14:00 Temperature Pulse Rate 49 L Respiratory Rate 27 H Blood Pressure 96/56 L 94/53 L Pulse Oximetry Oxygen Delivery Method 06/20/22 14:00 06/20/22 14:05 06/20/22 14:05 Temperature Pulse Rate 47 L 49 L Respiratory Rate 25 H 22 Blood Pressure 97/57 L Pulse Oximetry 98 97 Oxygen Delivery Method 06/20/22 14:10 06/20/22 14:10 06/20/22 14:15 Temperature Pulse Rate 50 L Respiratory Rate 20 Blood Pressure 96/60 105/62 Pulse Oximetry Oxygen Delivery Method 06/20/22 14:15 06/20/22 14:20 06/20/22 14:20 Temperature Pulse Rate 56 L 53 L Respiratory Rate 27 H 20 Blood Pressure 100/58 L Pulse Oximetry 97 98 Oxygen Delivery Method 06/20/22 14:25 06/20/22 14:25 06/20/22 14:29 Temperature Pulse Rate 49 L 51 L Respiratory Rate 19 21 Blood Pressure 101/56 L Pulse Oximetry 97 97 Oxygen Delivery Method 06/20/22 14:30 06/20/22 14:30 06/20/22 14:35 Temperature Pulse Rate 52 L Respiratory Rate 20 Blood Pressure 99/58 L 98/60 Pulse Oximetry 97 Oxygen Delivery Method 06/20/22 14:35 06/20/22 14:40 06/20/22 14:40 Temperature Pulse Rate 65 60 Respiratory Rate 20 20 Blood Pressure 102/63 Pulse Oximetry 97 97 Oxygen Delivery Method 06/20/22 14:45 06/20/22 14:45 06/20/22 14:50 Temperature Pulse Rate 66 Respiratory Rate 20 Blood Pressure 104/66 102/62 Pulse Oximetry 96 Oxygen Delivery Method 06/20/22 14:50 06/20/22 14:55 06/20/22 14:55 Temperature Pulse Rate 66 71 Respiratory Rate 18 20 Blood Pressure 106/67 Pulse Oximetry 96 97 Oxygen Delivery Method 06/20/22 15:00 06/20/22 15:00 06/20/22 15:05 Temperature Pulse Rate 72 Respiratory Rate 20 Blood Pressure 105/67 116/70 Pulse Oximetry 96 Oxygen Delivery Method 06/20/22 15:05 06/20/22 15:10 06/20/22 15:10 Temperature Pulse Rate 72 71 Respiratory Rate 20 20 Blood Pressure 108/69 Pulse Oximetry 96 96 Oxygen Delivery Method 06/20/22 15:15 06/20/22 15:15 06/20/22 15:20 Temperature Pulse Rate 71 Respiratory Rate 20 Blood Pressure 108/66 108/71 Pulse Oximetry 96 Oxygen Delivery Method 06/20/22 15:20 06/20/22 15:25 06/20/22 15:25 Temperature Pulse Rate 73 71 Respiratory Rate 20 20 Blood Pressure 112/70 Pulse Oximetry 96 96 Oxygen Delivery Method 06/20/22 15:30 06/20/22 15:30 06/20/22 15:35 Temperature Pulse Rate 71 Respiratory Rate 20 Blood Pressure 110/78 107/71 Pulse Oximetry 96 Oxygen Delivery Method 06/20/22 15:35 06/20/22 15:40 06/20/22 15:40 Temperature Pulse Rate 71 72 Respiratory Rate 20 20 Blood Pressure 107/72 Pulse Oximetry 96 95 Oxygen Delivery Method 06/20/22 15:45 06/20/22 15:45 06/20/22 15:50 Temperature Pulse Rate 69 Respiratory Rate 20 Blood Pressure 111/68 112/70 Pulse Oximetry 95 Oxygen Delivery Method 06/20/22 15:50 Temperature 97.6 F Pulse Rate 72 Respiratory Rate 37 H Blood Pressure Pulse Oximetry 95 Oxygen Delivery Method MDM - Extremity Injury (Upper) Lab Data Result diagrams: 06/20/22 13:37 06/20/22 13:37 Labs: Lab Results 06/20/22 06/20/22 06/20/22 Range/Units 13:35 13:37 13:37 WBC 3.7 L (4.5-11.0) X10^3/uL RBC 3.73 L (4.5-5.9) X10^6/uL Hgb 12.2 L (13.5-17.5) g/dL Hct 35.8 L (41-53) % MCV 96.1 (80-100) fL MCH 32.7 (26-34) PG MCHC 34.1 (30-36) % RDW 13.0 (11.6-14.8) % Plt Count 188 (150-400) X10^3/uL Neut % (Auto) 59.8 (50-75) % Lymph % (Auto) 27.1 (25-40) % [place] % (Auto) 9.1 (3-14) % Eos % (Auto) 3.1 (2-4) % Baso % (Auto) 0.9 (0-2) % Neut # (Auto) 2200 (7353-3921) /uL Lymph # (Auto) 1000 L (6437-5373) /uL [place] # (Auto) 300 (0-900) /uL Eos # (Auto) 100 (0-450) /uL Baso # (Auto) 0 (0-100) /uL PT 12.4 (10.1-12.7) SECONDS INR 1.1 (0.9-1.3) APTT 24 L (26-36) SECONDS Sodium (137-145) mmol/L Potassium (3.4-5.1) mmol/L Chloride (98-107) mmol/L Carbon Dioxide (22-32) mmol/L BUN (9-20) mg/dL Creatinine (0.66-1.25) mg/dL Estimated GFR (>60) mL/min BUN/Creatinine Ratio (6-22) Glucose (80-110) mg/dL Lactate (0.7-2.1) mmol/L Calcium (8.4-10.2) mg/dL Total Bilirubin (0.2-1.3) mg/dL AST (17-59) IU/L ALT (<50) IU/L Alkaline Phosphatase (38-126) U/L Total Protein (6.3-8.2) g/dL Albumin (3.5-5.0) g/dL Globulin (1.7-4.1) g/dL Albumin/Globulin Ratio (1.0-2.8) Lipase (23-300) U/L U Opiates 300ng/mL cut (Negative) Ur Oxycodone Screen (Negative) Urine Methadone Screen (Negative) Ur Barbiturates Screen (Negative) U Tricyclic Antidepress (Negative) Ur Phencyclidine Scrn (Negative) Ur Amphetamines Screen (Negative) U Methamphetamines Scrn (Negative) Ur MDMA Scrn (Ecstasy) (Negative) U Benzodiazepines Scrn (Negative) Urine Cocaine Screen (Negative) U Marijuana (THC) Screen (Negative) Ethyl Alcohol ( - 10) mg/dL Blood Type A Negative Antibody Screen Negative Crossmatch See Detail 06/20/22 06/20/22 06/20/22 Range/Units 13:37 13:37 13:37 WBC (4.5-11.0) X10^3/uL RBC (4.5-5.9) X10^6/uL Hgb (13.5-17.5) g/dL Hct (41-53) % MCV (80-100) fL MCH (26-34) PG MCHC (30-36) % RDW (11.6-14.8) % Plt Count (150-400) X10^3/uL Neut % (Auto) (50-75) % Lymph % (Auto) (25-40) % [place] % (Auto) (3-14) % Eos % (Auto) (2-4) % Baso % (Auto) (0-2) % Neut # (Auto) (3777-4963) /uL Lymph # (Auto) (9229-4196) /uL [place] # (Auto) (0-900) /uL Eos # (Auto) (0-450) /uL Baso # (Auto) (0-100) /uL PT (10.1-12.7) SECONDS INR (0.9-1.3) APTT (26-36) SECONDS Sodium 138 (137-145) mmol/L Potassium 3.8 (3.4-5.1) mmol/L Chloride 105 (98-107) mmol/L Carbon Dioxide 27 (22-32) mmol/L BUN 19 (9-20) mg/dL Creatinine 0.80 (0.66-1.25) mg/dL Estimated GFR > 60 (>60) mL/min BUN/Creatinine Ratio 23.8 H (6-22) Glucose 114 H (80-110) mg/dL Lactate 1.3 (0.7-2.1) mmol/L Calcium 8.1 L (8.4-10.2) mg/dL Total Bilirubin 0.6 (0.2-1.3) mg/dL AST 30 (17-59) IU/L ALT 17 (<50) IU/L Alkaline Phosphatase 114 (38-126) U/L Total Protein 5.9 L (6.3-8.2) g/dL Albumin 3.2 L (3.5-5.0) g/dL Globulin 2.7 (1.7-4.1) g/dL Albumin/Globulin Ratio 1.2 (1.0-2.8) Lipase 186 (23-300) U/L U Opiates 300ng/mL cut (Negative) Ur Oxycodone Screen (Negative) Urine Methadone Screen (Negative) Ur Barbiturates Screen (Negative) U Tricyclic Antidepress (Negative) Ur Phencyclidine Scrn (Negative) Ur Amphetamines Screen (Negative) U Methamphetamines Scrn (Negative) Ur MDMA Scrn (Ecstasy) (Negative) U Benzodiazepines Scrn (Negative) Urine Cocaine Screen (Negative) U Marijuana (THC) Screen (Negative) Ethyl Alcohol < 10 ( - 10) mg/dL Blood Type Cancelled Antibody Screen Cancelled Crossmatch 06/20/22 Range/Units 13:45 WBC (4.5-11.0) X10^3/uL RBC (4.5-5.9) X10^6/uL Hgb (13.5-17.5) g/dL Hct (41-53) % MCV (80-100) fL MCH (26-34) PG MCHC (30-36) % RDW (11.6-14.8) % Plt Count (150-400) X10^3/uL Neut % (Auto) (50-75) % Lymph % (Auto) (25-40) % [place] % (Auto) (3-14) % Eos % (Auto) (2-4) % Baso % (Auto) (0-2) % Neut # (Auto) (5595-6754) /uL Lymph # (Auto) (6810-6651) /uL [place] # (Auto) (0-900) /uL Eos # (Auto) (0-450) /uL Baso # (Auto) (0-100) /uL PT (10.1-12.7) SECONDS INR (0.9-1.3) APTT (26-36) SECONDS Sodium (137-145) mmol/L Potassium (3.4-5.1) mmol/L Chloride (98-107) mmol/L Carbon Dioxide (22-32) mmol/L BUN (9-20) mg/dL Creatinine (0.66-1.25) mg/dL Estimated GFR (>60) mL/min BUN/Creatinine Ratio (6-22) Glucose (80-110) mg/dL Lactate (0.7-2.1) mmol/L Calcium (8.4-10.2) mg/dL Total Bilirubin (0.2-1.3) mg/dL AST (17-59) IU/L ALT (<50) IU/L Alkaline Phosphatase (38-126) U/L Total Protein (6.3-8.2) g/dL Albumin (3.5-5.0) g/dL Globulin (1.7-4.1) g/dL Albumin/Globulin Ratio (1.0-2.8) Lipase (23-300) U/L U Opiates 300ng/mL cut Negative (Negative) Ur Oxycodone Screen Negative (Negative) Urine Methadone Screen Negative (Negative) Ur Barbiturates Screen Negative (Negative) U Tricyclic Antidepress Negative (Negative) Ur Phencyclidine Scrn Negative (Negative) Ur Amphetamines Screen Negative (Negative) U Methamphetamines Scrn Negative (Negative) Ur MDMA Scrn (Ecstasy) Negative (Negative) U Benzodiazepines Scrn Negative (Negative) Urine Cocaine Screen Negative (Negative) U Marijuana (THC) Screen Negative (Negative) Ethyl Alcohol ( - 10) mg/dL Blood Type Antibody Screen Crossmatch Point of Care Testing Glucose POC 114 Imaging Data Extremity x-ray #1: Radiologist's Impression: [address] [address] XRay Report Signed Patient: Jagdeep Marquis MR#: [id number] : 1950 Acct:[id number] Age/Sex: 71 / M Date of Service: 06/20/22 Loc: ED Accession Number: [id number] ?? Procedure: XR wrist LT min 3V Ordering Provider: Scott Estevez D.O. PROCEDURE:? XR WRIST LT MIN 3V ? INDICATIONS: chainsaw to wrist ? TECHNIQUE:? 3 views of the wrist were acquired.? ? COMPARISON:? Outside Film, NM, NM BONE SCAN WHOLE BODY, 02/15/2021, 12:22. ? FINDINGS:? ? Bones:? No fractures or dislocations.? No suspicious bony lesions.? ? Soft tissues:? No suspicious soft tissue calcifications.? There is soft tissue injury in the anterior aspect of the wrist.? A small soft tissue foreign body is noted adjacent to the radial styloid. ? IMPRESSION:? ? 1. No definitive acute osseous injuries. 2. Soft tissue injury in the anterior aspect of the wrist.? 3. A small subcutaneous foreign body in the radial aspect of the wrist adjacent to the radial styloid. ? ? Dictated by: Mariama Haas M.D. on 06/20/2022 at 14:44 ? ? Approved by: Mariama Haas M.D. on 06/20/2022 at 14:46 ? Discharge Plan Departure Patient Disposition: Home Clinical Impression: Contact with chainsaw as cause of accidental injury, Flexor tendon laceration of left wrist with open wound Instructions: DI for Trauma Activity Restrictions/Additional Instructions: *You have been diagnosed with [accidental laceration to her left wrist with a tendon involvement. Thankfully imaging and labs are very reassuring as was your response to therapy. Your tetanus was updated today] *What to do: *Please continue to take your regular medications as directed. [x ] New medication prescriptions sent to your pharmacy: [ [facility]] [ ] New medication written as a paper prescription [ ] No new medications given *Please follow up with [ Kaylynn] of [facility] in 2-3 days, call for an appointment. Let them know you were seen in the Emergency Department and that we ask that you be seen in follow up. We will electronically transmit a record of today's note if your PCP is in our system *Return to Emergency Department if you should have any new, worsening or concerning symptoms, such as [worsening pain, significant swelling, cold extremities, numbness, tingling, weakness or other bothersome symptoms Splint Care: Keep splint clean and dry. Elevated affected body part to decrease swelling. OK to use ice pack on the affected body part. Use for 15-20 minutes each time, for 5-6x per day. If you develop worsening pain, numbness, tingling, discoloration of the affected body part, loosen the splint by loosening the DEISY wrap, and either see your doctor for an urgent re-assessment, or return to the Emergency Department. Return to the Emergency Department for any new or worsening symptoms. Prescriptions: New cephalexin 500 mg capsule 500 mg PO Q6H 7 Days Qty: 28 0RF No Action sildenafil 50 mg tablet 0 mg PO DIRECTED Referrals: Isabell Chaidez MD [Physician] - Edie Hirsch PA-C [Primary Care Provider] - Visit Report Forms: Patient Portal/API
[2022-06-20] MEDS: TRANEXAMIC ACID 1,000 MG in SODIUM CHLORIDE 0.9% 100 ML 200 MG IV (13:45)
[2022-06-20 13:50] LABS: Add Manual Diff / Slide Review NO; Basophils Absolute Auto 0 /uL (0-100); Basophils Percent Auto 0.9 % (0-2); Eosinophils Absolute Auto 100 /uL (0-450); Eosinophils Percent Auto 3.1 % (2-4); Hematocrit 35.8 % (41-53); Hemoglobin 12.2 g/dL (13.5-17.5); Lymphocytes Absolute Auto 1000 /uL (1100-4500); Lymphocytes Percent Auto 27.1 % (25-40); Mean Corpuscular HGB Conc 34.1 % (30-36); Mean Corpuscular Hemoglobin 32.7 PG (26-34); Mean Corpuscular Volume 96.1 fL (80-100); Monocytes Absolute Auto 300 /uL (0-900); Monocytes Percent Auto 9.1 % (3-14); Neutrophils Absolute Auto 2200 /uL (1500-7000); Neutrophils Percent Auto 59.8 % (50-75); Platelet Count 188 X10^3/uL (150-400); Red Blood Cell Count 3.73 X10^6/uL (4.5-5.9); White Blood Cell Count 3.7 X10^3/uL (4.5-11.0)
[2022-06-20 13:56] LABS: INR 1.1 (0.9-1.3); Prothrombin Time 12.4 SECONDS (10.1-12.7)
[2022-06-20 13:59] LABS: PTT Partial Thromboplastin Tim 24 SECONDS (26-36)
[2022-06-20] MEDS: TET,DIPH,PERTUSS(ACELL),VAC/PF 0.5 ML SYRINGE IM (13:59)
[2022-06-20 14:01] LABS: Lactate (Lactic Acid) 1.3 mmol/L (0.7-2.1)
[2022-06-20] MEDS: CEFAZOLIN VIAL 1 GM in SODIUM CHLORIDE 0.9% 100 ML IV (14:01)
[2022-06-20 14:03] LABS: Alanine Aminotransferase 17 IU/L (<50); Albumin 3.2 g/dL (3.5-5.0); Albumin Globulin Ratio 1.2 (1.0-2.8); Alkaline Phosphatase 114 U/L (38-126); Aspartate Aminotransferase 30 IU/L (17-59); BUN Creatinine Ratio 23.8 (6-22); Bilirubin Total 0.6 mg/dL (0.2-1.3); Blood Urea Nitrogen 19 mg/dL (9-20); Calcium 8.1 mg/dL (8.4-10.2); Carbon Dioxide 27 mmol/L (22-32); Chloride 105 mmol/L (98-107); Estimated Glomerular Filt Rate > 60 mL/min (>60); Ethanol (ETOH) < 10 mg/dL; Globulin 2.7 g/dL (1.7-4.1); Glucose 114 mg/dL (80-110); HEMOLYSIS 23 (0-50); Lipase 186 U/L (23-300); Potassium 3.8 mmol/L (3.4-5.1); Sodium 138 mmol/L (137-145); Total Protein 5.9 g/dL (6.3-8.2)
[2022-06-20 14:15] LABS: Ur Creatinine Normal (Normal); Ur Specific Gravity Normal (Normal); Urine Tetrahydrocannabinol Negative (Negative); Urine pH Normal (Normal)
[2022-06-20 14:16] LABS: UR Morphine/Opiate cutoff 300 Negative (Negative); Urine Amphetamines Negative (Negative); Urine Barbiturates Negative (Negative); Urine Benzodiazepines Negative (Negative); Urine Cocaine Negative (Negative); Urine MDMA Negative (Negative); Urine Methadone Negative (Negative); Urine Methamphetamines Negative (Negative); Urine Oxycodone Negative (Negative); Urine Phencyclidine Negative (Negative); Urine Tricyclic Antidepressant Negative (Negative)
--- NOTE | 2022-06-20 14:24 | PC.NURSE ---
1335 uncrossmatched O negative blood transusion (1 unit prbc) started right ac, via pressure bag. vitals temp 97.4 oral, hr 50, bp70/40, rr 20, oxygen saturation 99%ra, started for trauma blood loss transufsion. gcs 14 1342 vitals bp 91/50 hr 50 rr 20 temp 97.5 oral 99% ra gcs 14 1409 1 unit of prbc (uncrossmatched o negative) transufion completed bp 97/47 hr 52 rr 20 temp 97.5 and 99% on ra. gcs 15
== END 2022-06-20 16:08 | disposition home or self-care (01) ==
PROVIDERS: Emergency Provider Emergency Medicine; PCP Physician Assistant
DX: S66.922A Laceration of unspecified muscle, fascia and tendon at wrist and hand level, left hand, initial encounter (principal); W29.3XXA Contact with powered garden and outdoor hand tools and machinery, initial encounter; Z23 Encounter for immunization; R00.1 Bradycardia, unspecified
CPT/HCPCS: 29125; 36415; 36430; 73110; 80053; 80305; 80320; 82962; 83605; 83690; 85025; 85610; 85730; 86850; 86900; 86901; 90471; 93005; 93010; 96365; 96375; 99284; 99285; P9016; 90715; J0690

== ENCOUNTER 2022-06-23 12:23 | Emergency (ER) | payer OTHER, MEDICARE, SELFPAY ==
[2022-06-23 12:33] VITALS: PULSE 72; O2SAT 96
[2022-06-23 12:34] VITALS: BP 148/83; PULSE 72; O2SAT 97
[2022-06-23 12:40] VITALS: BP 140/73; PULSE 71; RESP 18; TEMP 36.9; O2SAT 97
--- NOTE | 2022-06-23 12:47 | DI.RAD.S_ITS ---
PROCEDURE: XR FOOT LT 2V INDICATIONS: 5th toe pain, osteo? TECHNIQUE: 2 views of the foot were acquired. COMPARISON: None. FINDINGS: Bones: No displaced fracture or dislocation. No convincing osseous erosion. Osseous demineralization. Plantar enthesopathy. Soft tissues: Punctate metallic linear foreign body at the plantar surface underlying the great toe. IMPRESSION: No acute radiographic abnormality. MRI is more sensitive for early osteomyelitis changes if necessary. Suspected linear metallic foreign body at the plantar surface of the great toe. Dictated by: Cameron Hernandez M.D. on 06/23/2022 at 12:11 Approved by: Cameron Hernandez M.D. on 06/23/2022 at 12:13
[2022-06-23 13:00] VITALS: BP 130/78; PULSE 64; PULSE 65; O2SAT 97
[2022-06-23] MEDS: BACITRACIN OINT 0.9 GM PCKT 1 APPLIC TOP (13:21)
[2022-06-23] MEDS: ACETAMINOPHEN 325 MG TABLET 650 MG PO (13:21)
[2022-06-23] MEDS: IBUPROFEN 400 MG TABLET 800 MG PO (13:21)
--- NOTE | 2022-06-23 13:27 | ED.EXTPRO ---
HPI - Extremity Problem <MICHELLE Carrera - Last Filed: 06/23/22 13:42> General Chief complaint: Extremity Problem,Nontraumatic Stated complaint: BLOODE IN URINE, BACK PAIN, L LEG SWELLING Time Seen by Provider: 06/23/22 12:27 Source: patient Mode of arrival: Wheelchair History of Present Illness HPI Narrative: This is a 71-year-old gentleman who returns to the emergency department after injuring his left forearm with a chainsaw 3 days ago and was seen in the emergency department for evaluation of his wound with sutures, covered in his splint, he also complains left lateral toe pain without injury to his toe. States that he has been wearing how shoes and has tenderness over his 5th toe injury. His toenails are overgrown and with fungal infection, visibly dirty, patient is concerned about in-between his toes and cracking in his heels. He denies any significant pain, without sensation changes, without unilateral swelling, erythema, exquisite tenderness, rash, or open wound. He is wearing slippers, is ambulatory without limping, states that his splint is very comfortable has served him well. He states he has been hydrated, complains of voiding a small amount of blood a day after he had his Miller catheter removed. He denies dysuria, urinary frequency or urgency, flank pain, fever, chills, or weakness. Related Data Home Medications Medication Instructions Recorded Confirmed sildenafil 50 mg tablet 0 mg PO DIRECTED 03/23/19 Previous Rx's Medication Instructions Recorded cephalexin 500 mg capsule 500 mg PO Q6H 7 days #28 caps 06/20/22 mupirocin 2 % topical ointment 1 applic topical DAILY #22 grams 06/23/22 white petrolatum (Vaseline jelly, 1 applic topical BID #113 grams 06/23/22 topical) Allergies Allergy/AdvReac Type Severity Reaction Status Date / Time No Known Drug Allergies Allergy Verified 06/23/22 12:40 Review of Systems <MICHELLE Carrera - Last Filed: 06/23/22 13:42> Review of Systems ROS Unobtainable: All systems reviewed & are unremarkable except as noted in HPI and below Patient History <MICHELLE Carrera - Last Filed: 06/23/22 13:42> Medical History Hypertension Traumatic brain injury (~1986) Social History Smoking Status: Never smoker Smoking Status: Never smoker alcohol intake frequency: other Substance Use Type: does not use Exam <MICHELLE Carrera - Last Filed: 06/23/22 13:42> Initial Vital Signs Initial Vital Signs: Vital Signs Pulse Rate 72 06/23/22 12:33 Pulse Oximetry 96 06/23/22 12:33 Oxygen Delivery Method 06/23/22 12:33 Extrem Left lower extremity: full ROM, normal capillary refill and foot (No Foreign body palpable or visible, exam, full range of motion of all toes) Details: toes with normal ROM, vascular exam and motor-sensory exam Other: Normal perfusion by the laterally, without edema or areas of bogginess, fluctuance, abscess, mass, erythema, or foreign body, <Scott Estevez DO - Last Filed: 06/23/22 18:27> Initial Vital Signs Initial Vital Signs: Vital Signs Pulse Rate 72 06/23/22 12:33 Pulse Oximetry 96 06/23/22 12:33 Oxygen Delivery Method 06/23/22 12:33 Procedures <MICHELLE Carrera - Last Filed: 06/23/22 13:42> Orthopedic Splinting/Casting Injury #1: Side: left Upper Extremity Injury Location: forearm Upper Extremity Immobilizer: volar splint Post splinting vascular exam: intact Placed by: Provider Additional Comments: Patient's splint was for use, wound care completed by myself, gently irrigated with normal saline, no purulence drainage, without surrounding erythema, sutures intact, Xeroform applied and Telfa, rewrap with bulky gauze dressing, patient is comfortable, splint rewrapped loosely with René bandage, patient tolerated well, CSM intact distally. Course <MICHELLE Carrera - Last Filed: 06/23/22 13:42> Orders Ordered: ED Orders 06/23/22 12:47 XR foot LT 2V Stat 06/23/22 13:03 Urine Microscopic Stat Discontinued Medications Acetaminophen (Acetaminophen 325 Mg Tablet) 650 mg PO NOW ONE Stop: 06/23/22 12:53 Last Admin: 06/23/22 13:21 Dose: 650 mg Documented By: KIANA Sinclairacin (Bacitracin Oint 0.9 Gm Pckt) 1 applic TOP NOW ONE Stop: 06/23/22 12:52 Last Admin: 06/23/22 13:21 Dose: 1 applic Documented By: KIANA Ibuprofen (Ibuprofen 400 Mg Tablet) 800 mg PO NOW ONE Stop: 06/23/22 12:53 Last Admin: 06/23/22 13:21 Dose: 800 mg Documented By: KIANA Vital Signs Vital signs: Vital Signs - 8 hr 06/23/22 12:40 06/23/22 12:33 06/23/22 12:34 Temperature 98.4 F Pulse Rate 71 72 Pulse Rate [Left Dorsalis Pedis] Respiratory Rate 18 Blood Pressure 140/73 148/83 H Pulse Oximetry 97 96 Oxygen Delivery Method Room Air Room Air 06/23/22 12:34 06/23/22 13:00 06/23/22 13:00 Temperature Pulse Rate 72 65 Pulse Rate [Left Dorsalis Pedis] Respiratory Rate Blood Pressure 130/78 Pulse Oximetry 97 97 Oxygen Delivery Method Room Air Room Air 06/23/22 13:00 06/23/22 13:30 06/23/22 13:31 Temperature Pulse Rate 64 Pulse Rate [Left Dorsalis Pedis] 64 Respiratory Rate Blood Pressure 146/89 H Pulse Oximetry 96 Oxygen Delivery Method Room Air 06/23/22 13:31 Temperature Pulse Rate 63 Pulse Rate [Left Dorsalis Pedis] Respiratory Rate Blood Pressure Pulse Oximetry 95 Oxygen Delivery Method Room Air <Scott Estevez DO - Last Filed: 06/23/22 18:27> Orders Ordered: ED Orders 06/23/22 12:47 XR foot LT 2V Stat 06/23/22 13:03 Urine Microscopic Stat Discontinued Medications Acetaminophen (Acetaminophen 325 Mg Tablet) 650 mg PO NOW ONE Stop: 06/23/22 12:53 Last Admin: 06/23/22 13:21 Dose: 650 mg Documented By: KIANA Sinclairacin (Bacitracin Oint 0.9 Gm Pckt) 1 applic TOP NOW ONE Stop: 06/23/22 12:52 Last Admin: 06/23/22 13:21 Dose: 1 applic Documented By: KIANA Ibuprofen (Ibuprofen 400 Mg Tablet) 800 mg PO NOW ONE Stop: 06/23/22 12:53 Last Admin: 06/23/22 13:21 Dose: 800 mg Documented By: KIANA Vital Signs Vital signs: Vital Signs - 8 hr 06/23/22 12:40 06/23/22 12:33 06/23/22 12:34 Temperature 98.4 F Pulse Rate 71 72 Pulse Rate [Left Dorsalis Pedis] Respiratory Rate 18 Blood Pressure 140/73 148/83 H Pulse Oximetry 97 96 Oxygen Delivery Method Room Air Room Air 06/23/22 12:34 06/23/22 13:00 06/23/22 13:00 Temperature Pulse Rate 72 65 Pulse Rate [Left Dorsalis Pedis] Respiratory Rate Blood Pressure 130/78 Pulse Oximetry 97 97 Oxygen Delivery Method Room Air Room Air 06/23/22 13:00 06/23/22 13:30 06/23/22 13:31 Temperature Pulse Rate 64 Pulse Rate [Left Dorsalis Pedis] 64 Respiratory Rate Blood Pressure 146/89 H Pulse Oximetry 96 Oxygen Delivery Method Room Air 06/23/22 13:31 Temperature Pulse Rate 63 Pulse Rate [Left Dorsalis Pedis] Respiratory Rate Blood Pressure Pulse Oximetry 95 Oxygen Delivery Method Room Air MDM - Extremity (Nontraumatic) <Sandi Mayer, [facility] - Last Filed: 06/23/22 13:42> Lab Data Labs: Lab Results 06/23/22 Range/Units 13:03 Urine RBC 0-1/hpf (0-5/HPF) Urine WBC 0-1/hpf (0-5/HPF) Ur Squamous Epith Cells None seen (0-5/HPF) Amorphous Sediment 2+ Urine Bacteria Occasional (0-1) (None) Ur Culture Indicated? Cult not indicated Urine Dip Bedside Urine Glucose Negative Bedside Urine Bilirubin - Negative Bedside Urine Ketone - Negative Urine Specific Vance 1.015 Bedside Urine Occult Blood +/- Bedside Urine pH 7.0 Bedside Urine Protein - Negative Bedside Urine Urobilinogen - Negative Bedside Urine Nitrite - Negative Bedside Urine Leukocytes - Negative Esterase Imaging Data Extremity x-ray #1: Radiologist's Impression: [address] [address] XRay Report Signed Patient: Jagdeep Marquis MR#: [id number] : 1950 Acct:[id number] Age/Sex: 71 / M Date of Service: 06/23/22 Loc: ED Accession Number: [id number] ?? Procedure: XR foot LT 2V Ordering Provider: Sandi Mayer PROCEDURE:? XR FOOT LT 2V ? INDICATIONS:? 5th toe pain, osteo? ? TECHNIQUE:? 2 views of the foot were acquired.? ? COMPARISON:? None. ? FINDINGS:? ? Bones:? No displaced fracture or dislocation.? No convincing osseous erosion.? Osseous demineralization.? Plantar enthesopathy. ? Soft tissues:? Punctate metallic linear foreign body at the plantar surface underlying the great toe. ? ? IMPRESSION:? No acute radiographic abnormality.? MRI is more sensitive for early osteomyelitis changes if necessary. Suspected linear metallic foreign body at the plantar surface of the great toe. ? ? Dictated by: Cameron Hernandez M.D. on 06/23/2022 at 12:11 ? ? Approved by: Cameron Hernandez M.D. on 06/23/2022 at 12:13 ? MDM Narrative Medical decision making narrative: This is a 71-year-old gentleman who presents to the emergency department complaining of left lateral foot pain with concern for injury or wound. Patient is unable to see this far. On exam, there is no significant erythema, open wound, drainage, bogginess, fluctuance, or exquisite tenderness. His range of motion is normal in intact, his toenails are overgrown and dirty. X-ray of his left foot shows an incidental punctate metallic linear foreign body at the plantar surface of the great toe, on exam of his great toe, there is no difference in texture with palpation, this was cleaned with chlorhexidine, no tenderness, his toenails are thick and be related to debris in the nail. Gave contact information for Dr. Sims with Podiatry in [place], encouraged him to call and schedule an appointment for follow-up on Saturday. He was given a prescription for mupirocin ointment to apply topically to any cracks or areas of tenderness, also gave him a prescription of Vaseline he could use for his heels as his feet are quite dry but no significant appearance of infection. Patient is on cephalexin 500 mg q.i.d. and understands to follow-up with Podiatry. He is without fever, sensation changes, edema, erythema, or signs of overt infection. Patient's urine dip is negative for infection or hematuria. He denies any symptoms currently, has not taken Tylenol or ibuprofen as needed, denies any other symptoms at this time. His feet were concerned with chlorhexidine in a wash while he was here, I scrubbed his toenails with chlorhexidine as well and did not find any concerning areas of infection today. Patient is appropriate and amenable to discharge home. Patient has been given strict return to ER precautions for any new or worsening symptoms. Patient understands to follow up closely with outpatient providers as instructed. Patient understands plan and agrees to discharge home. All questions and concerns answered at this time. <Scott Estevez, DO - Last Filed: 06/23/22 18:27> Lab Data Labs: Lab Results 06/23/22 Range/Units 13:03 Urine RBC 0-1/hpf (0-5/HPF) Urine WBC 0-1/hpf (0-5/HPF) Ur Squamous Epith Cells None seen (0-5/HPF) Amorphous Sediment 2+ Urine Bacteria Occasional (0-1) (None) Ur Culture Indicated? Cult not indicated Urine Dip Bedside Urine Glucose Negative Bedside Urine Bilirubin - Negative Bedside Urine Ketone - Negative Urine Specific Vance 1.015 Bedside Urine Occult Blood +/- Bedside Urine pH 7.0 Bedside Urine Protein - Negative Bedside Urine Urobilinogen - Negative Bedside Urine Nitrite - Negative Bedside Urine Leukocytes - Negative Esterase Discharge Plan Departure Patient Disposition: Home Clinical Impression: Encounter for wound re-check Acute foot pain Qualifiers: Laterality: left Qualified Code(s): M79.672 - Pain in left foot Instructions: How to Perform Active Range of Motion Exercises, How to Perform Passive Range of Motion Exercises, Skin Wound Activity Restrictions/Additional Instructions: *You have been diagnosed without evidence of bony infection of your foot. Please use this concentrated so to add some to some water every other day to soak her feet with until you are able to follow-up with Podiatry. On Saturday, please call Dr. Sims's office and set up a follow-up appointment for evaluation of your toenails, and foot pain. We did not find any concerning abnormalities today requiring change of your antibiotic or plan of care. Please continue taking ibuprofen and Tylenol as needed for your pain. Rest, use the antibiotic ointment on your wound and on cracks in your foot as needed. Please apply Vaseline to your heals and the cracks in your feet and cover with a sock. That will help prevent infection. I hope you feel better soon, thank you for coming in. *What to do: *Please continue to take your regular medications as directed. [x ] New medication prescriptions sent to your pharmacy: [[facility]] [ ] New medication written as a paper prescription [ ] No new medications given *Please follow up with your primary care provider in 2-3 days, call for an appointment. Let them know you were seen in the Emergency Department and that we asked that you be seen for follow-up. We will electronically transmit a record of today's note if your PCP is in our system *If you do not have a primary care provider please contact [phone] to establish care with one of the [facility] primary care providers. *Return to Emergency Department if you should have any new, worsening, or concerning symptoms, such as [fever greater than 101F, chills, worsening pain, persistent vomiting or other bothersome symptoms]. Prescriptions: New mupirocin 2 % ointment 1 applic topical DAILY Qty: 22 0RF white petrolatum [Vaseline] Gel 1 applic topical BID Qty: 113 0RF No Action sildenafil 50 mg tablet 0 mg PO DIRECTED cephalexin 500 mg capsule 500 mg PO Q6H 7 Days Qty: 28 0RF Referrals: Edie Hirsch PA-C [Primary Care Provider] - Virgil Sims DPM [Physician] - As soon as possible (re, left foot pain) Visit Report Forms: Patient Portal/API <Scott Estevez DO - Last Filed: 06/23/22 18:27> [facility]ature Attestation: I was immediately available in the department for consultation. This documentation has been reviewed and I agree with assessment and plan. Supervised by Scott Estevez DO
[2022-06-23 13:30] VITALS: PULSE 64; O2SAT 96
[2022-06-23 13:31] VITALS: BP 146/89; PULSE 63; O2SAT 95
[2022-06-23 13:39] LABS: Amorphous Sediment Urine 2+; Bacteria Urine Occasional (0-1); Culture Indicated Urine Cult Not Indicated; RBC Urine 0-1/HPF (0-5/HPF); Squamous Epithelial Cell Urine None Seen (0-5/HPF); WBC Urine 0-1/HPF (0-5/HPF)
== END 2022-06-23 13:35 | disposition home or self-care (01) ==
PROVIDERS: Emergency Provider Nurse Practitioner Critical Care Medicine; PCP Physician Assistant
DX: M79.672 Pain in left foot (principal)
CPT/HCPCS: 73620; 81003; 81015; 99283; 99284

== ENCOUNTER 2022-06-29 07:28 | Emergency (ER) | payer OTHER, MEDICARE, SELFPAY ==
[2022-06-29] VITALS (7 sets, daily range): BP systolic 122–134; BP diastolic 71–81; PULSE 64–72; RESP 18; TEMP 36.6; O2SAT 91–98; BMI 20.9
--- NOTE | 2022-06-29 07:39 | ED_ITS ---
HPI - Back Pain/Injury General Chief Complaint: Fall Stated Complaint: back pain Time Seen by Provider: 06/29/22 07:39 Source: patient, RN notes reviewed and old records reviewed Mode of arrival: Ambulatory Limitations: no limitations History of Present Illness HPI Narrative: This is a 71-year-old male with history of prostate cancer with prior radiation therapy on q.6 month injections and testosterone, diet-controlled diabetes who presents to have his wound from chainsaw injury checked. He states it is clean dry and intact and asking if the sutures can come out. It was repaired on 06/20/2022. Patient also had a fall yesterday, states he was walking inside it is quite snow a and slippery outside and he fell backwards landing on his back he denies hitting his head, he denies neck pain he describes lower lumbar pain more on the left that is so much in the midline and in the pelvis. He states he has been able to ambulate but it is painful after a short distance. States he is got chronic numbness tingling in his right leg from the thigh to the knee and on the foot which is unchanged. He states he is had some new pain radiating down the left leg and not numb but feels different. He does not appreciate new weakness. Patient has not had any bowel or bladder incontinence. He has tried ibuprofen he had doses at 10:00 p.m. at about 4:00 a.m. today. Patient states he is had some chronic back issues he normally sleeps on his couch and has put some plywood underneath to make it more firm and switches sides regularly, he has been doing this for some time because when he sleeps facing a particular direction one-sided back starts to hurt so he will flip each day to the other direction so that his back does not hurt more. He notes that he is had prior pelvic fractures and hardware placed he states this was from a lifting injury and that he was told his bones were very weak from radiation. He denies any allergies to medications. He lives independently on his own. His primary care is Jordyn holiday, he gets some of his care through the MD. he does still follow with oncology. Related Data Home Medications Medication Instructions Recorded Confirmed sildenafil 50 mg tablet 0 mg PO DIRECTED 03/23/19 Previous Rx's Medication Instructions Recorded mupirocin 2 % topical ointment 1 applic topical DAILY #22 grams 06/23/22 white petrolatum (Vaseline jelly, 1 applic topical BID #113 grams 06/23/22 topical) Allergies Allergy/AdvReac Type Severity Reaction Status Date / Time No Known Drug Allergies Allergy Verified 06/23/22 12:40 Review of Systems Review of Systems ROS Unobtainable: All systems reviewed & are unremarkable except as noted in HPI and below Patient History Medical History (Updated 07/05/22 @ 00:00 by ) Hypertension Traumatic brain injury (~1986) Social History Smoking Status: Never smoker Smoking Status: Never smoker alcohol intake frequency: other Substance Use Type: does not use Exam Narrative Exam Narrative: GEN: Patient appears in mild distress. HEAD: No evidence of trauma, no raccoon/Maria sign. NECK: Nontender, painless range of motion, trachea midline Negative for Nexus criteria, there is no midline line tenderness, distracting injury, altered mental status, neuro deficit, recent EtOH. EYES: PERRLA, EOMI ENT: External inspection normal, trachea is midline, TM's are normal no hemotypanum, Nares are clear, no septal hematoma, no dental or oral injury, airway is normal and with normal occlusion, No bony tenderness RESP: Chest is nontender and has symmetric movement, no ecchymosis, breath sounds are normal no crackles, wheezes or rales CVS: Heart sounds are normal, no murmur noted, No JVD. ABG/GI: Nontender, soft, normal bowel sounds, no distention, no organomegaly, pelvic rock is negative NEURO: Oriented AOx3, neuro is grossly intact, sensation and motor is normal all 4 extremities moving, cranial nerves II through XII are intact, GCS is 15 PSYCH: Normal mood and affect SKIN: Intact, warm and dry, no crepitus and without decubitus. No ecchymosis, no abrasion. BACK: No CVA tenderness, no vertebral tenderness, no step-off's, no crepitus EXT: Atraumatic, hips are nontender, no pedal edema, normal color and temperature, normal range of motion of extremities with normal tendon exam, 2+ pulses in all four extremities. Patient does have more difficulty lifting his right leg more than his left but states this is normal. Initial Vital Signs Initial Vital Signs: Vital Signs Temperature 97.9 F 06/29/22 07:30 Pulse Rate 72 06/29/22 07:30 Respiratory Rate 18 06/29/22 07:30 Blood Pressure 134/81 06/29/22 07:30 Pulse Oximetry 95 06/29/22 07:30 Oxygen Delivery Method 06/29/22 07:30 Course Orders Ordered: Discontinued Medications Acetaminophen (Acetaminophen 325 Mg Tablet) 650 mg PO NOW ONE Stop: 06/29/22 08:00 Last Admin: 06/29/22 08:20 Dose: 650 mg Documented By: JESUS Vital Signs Vital signs: Vital Signs - 8 hr 06/29/22 07:30 Temperature 97.9 F Pulse Rate 72 Respiratory Rate 18 Blood Pressure 134/81 Pulse Oximetry 95 Oxygen Delivery Method Room Air MDM - Back Pain/Injury Imaging Data Lumbar spine CT: Radiologist's Impression: Close Pelvis CT (Signed) David,[facility] - 06/29/[address] (Signed) [facility] - 06/29/22 Foot X-Ray (Signed) David,[facility] - 06/23/22 Wrist X-Ray (Signed) Mariama Haas - 06/20/22 Echocardiogram Ultrasound (Signed) Cortez Charles - 06/12/19 Radiology Report (Cancelled) Xenia Andersen - 05/04/19 Myocardial Perfusion Scan Nuc Med (Signed) Xenia Andersen - 05/04/[address] (Signed) Paul Page - 03/23/19 Chest X-Ray (Signed) Paul Page - 03/23/19 Launch?[place] [address] CT Scan Report Signed Patient: Jagdeep Marquis MR#: [id number] : 1950 Acct:[id number] Age/Sex: 71 / M Date of Service: 06/29/22 Loc: ED Accession Number: [id number] ?? Procedure: CT lumbar spine wo con Ordering Provider: Adrianna Fajardo D.O. PROCEDURE:? CT LUMBAR SPINE WO CON ? INDICATIONS:? fall, left back/hip pain, prior fx's ? TECHNIQUE:? Noncontrast 3 mm thick sections acquired from the T12 level to the sacrum.? Sagittal and coronal reformats were constructed.? For radiation dose reduction, the following was used:? automated exposure control.? ? COMPARISON:? [facility], CT, CT LUMBAR SPINE WITHOUT CONTRAST, 05/13/2022, 13:35. ? FINDINGS:? Image quality:? Good ? Bones:? Similar compression deformities and healing fracture of L5.? Similar height loss of the L4 vertebral body.? No new vertebral body height loss.? Similar lucency near the inferior endplate of T11.? Fbss-sg-yfbrusyi overall degenerative changes with disc space height loss, osteophytes, and facet arthropathy. Sclerosis of the sacrum, compatible with healing fractures.? Acetabular and right iliac fixation hardware is partially seen. Pelvis findings are separately dictated.? ? ? Soft tissues:? No paravertebral hematoma or abscess.? Partially visualized intra-abdominal structures unremarkable. ? ? IMPRESSION:? Healing lower lumbar and sacral fractures.? Stable height loss of L4, and L5.? No new/acute finding.? Srnf-ar-zxpvuqiy spondylosis.? If there is high concern for further derangement, consider MRI evaluation. ? ? ? Dictated by: Cameron Hernandez M.D. on 06/29/2022 at 7:21 ? ? Approved by: Cameron Hernandez M.D. on 06/29/2022 at 7:25?? Pelvic CT: Radiologist's Impression: [place] [address] CT Scan Report Signed Patient: Jagdeep Marquis MR#: [id number] : 1950 Acct:[id number] Age/Sex: 71 / M Date of Service: 06/29/22 Loc: ED Accession Number: [id number] ?? Procedure: CT pelvis wo con Ordering Provider: Adrianna Fajardo D.O. PROCEDURE:? CT PEL WO CON ? INDICATIONS:? fall, left back/hip pain, prior fx's ? TECHNIQUE:? Noncontrast 3 mm axial sections acquired through the bony pelvis, with coronal and sagittal reformatting.? ? COMPARISON:? [facility], CT, CT PELVIS WITH CONTRAST, 05/11/2021, 8:46. ? FINDINGS:? Image quality:? Excellent.? ? Bones:? No displaced fracture.? Femoroacetabular joint is congruent.? Lilt-gs-gtttoixo arthrosis is present.? Partially visualized right acetabular fixation hardware and right femoral neck screws.? Prior deformity of the right iliac bone.? Healing sacral fractures with sclerosis, probably stable compared to May.? Slightly increased sclerosis may be due to increased healing.? Old deformity of the right inferior obturator ring. ? Soft tissues:? Colonic diverticula.? Bladder stone.? Prostate radiation markers.? Intrapelvic structures are not well evaluated.? There is large cecal stool burden.? Small fat containing umbilical hernia. ? ? IMPRESSION:? No new/acute osseous findings.? Healing sacral fractures with increased sclerosis.? Old right pelvic ring deformities and fixation hardware.? If there is high concern for occult injury, consider repeat radiography or cross-sectional imaging.? ? Dictated by: Cameron Hernandez M.D. on 06/29/2022 at 7:25 ? ? Approved by: Cameron Hernandez M.D. on 06/29/2022 at 7:31?? MDM Narrative Medical decision making narrative: Patient has reported history of osteoporosis and has had pelvic fractures requiring hardware with lower mechanism injuries he is ambulating he has some increased difficulty lifting his right leg but states this is his normal. He denies any other new neurologic changes. Plan for L-spine and pelvic CT these high-risk to miss fractures with x-ray. Patient laceration appears to be healing well he is in a time frame to have his sutures removed but it does not appear fully healed removed 1 and feel that likely the wound with dehiscence so no additional sutures removed and he was encouraged to come back in the next [address] imaging shows no acute change or fracture. Patient has been ambulating no new neurologic changes felt safe for discharge home. Discharge Plan Departure Patient Disposition: Home Clinical Impression: Fall, Contact with chainsaw as cause of accidental injury, Healing wound Activity Restrictions/Additional Instructions: Follow up in the next 5 days for suture removal, you wound appears to be healing well but is taking a little bit longer time. It does not appear infected today. Your CT imaging of your lumbar spine and pelvis shows her old fractures but no new fractures or breaks. You may take Tylenol 500- 1000 mg every 6 hours as needed for pain. Maximum amount of Tylenol in 4000 mg in 24 hours. If in adequate you can take ibuprofen up to 600 mg every 6 hours, maximum amount of ibuprofen is 2400 mg in 24 hours. Please return for rapidly worsening pain, new loss of bowel or bladder control, new weakness, numbness loss of sensation, inability to ambulate safely, you have any signs of infection in the laceration on your forearm or other new or concerning changes. Prescriptions: No Action sildenafil 50 mg tablet 0 mg PO DIRECTED mupirocin 2 % ointment 1 applic topical DAILY Qty: 22 0RF white petrolatum [Vaseline] Gel 1 applic topical BID Qty: 113 0RF Referrals: Edie Hirsch PA-C [Primary Care Provider] - Visit Report Forms: Patient Portal/API
--- NOTE | 2022-06-29 07:58 | DI.CT.S_ITS ---
PROCEDURE: CT PEL WO CON INDICATIONS: fall, left back/hip pain, prior fx's TECHNIQUE: Noncontrast 3 mm axial sections acquired through the bony pelvis, with coronal and sagittal reformatting. COMPARISON: [facility], CT, CT PELVIS WITH CONTRAST, 05/11/2021, 8:46. FINDINGS: Image quality: Excellent. Bones: No displaced fracture. Femoroacetabular joint is congruent. Jmtb-yv-zllyivmk arthrosis is present. Partially visualized right acetabular fixation hardware and right femoral neck screws. Prior deformity of the right iliac bone. Healing sacral fractures with sclerosis, probably stable compared to May. Slightly increased sclerosis may be due to increased healing. Old deformity of the right inferior obturator ring. Soft tissues: Colonic diverticula. Bladder stone. Prostate radiation markers. Intrapelvic structures are not well evaluated. There is large cecal stool burden. Small fat containing umbilical hernia. IMPRESSION: No new/acute osseous findings. Healing sacral fractures with increased sclerosis. Old right pelvic ring deformities and fixation hardware. If there is high concern for occult injury, consider repeat radiography or cross-sectional imaging. Dictated by: Cameron Hernandez M.D. on 06/29/2022 at 7:25 Approved by: Cameron Hernandez M.D. on 06/29/2022 at 7:31
--- NOTE | 2022-06-29 07:58 | DI.CT.S_ITS ---
PROCEDURE: CT LUMBAR SPINE WO CON INDICATIONS: fall, left back/hip pain, prior fx's TECHNIQUE: Noncontrast 3 mm thick sections acquired from the T12 level to the sacrum. Sagittal and coronal reformats were constructed. For radiation dose reduction, the following was used: automated exposure control. COMPARISON: Outside Film, CT, CT LUMBAR SPINE WITHOUT CONTRAST, 05/13/2022, 13:35. FINDINGS: Image quality: Good Bones: Similar compression deformities and healing fracture of L5. Similar height loss of the L4 vertebral body. No new vertebral body height loss. Similar lucency near the inferior endplate of T11. Wpqv-mg-bcjmpvzn overall degenerative changes with disc space height loss, osteophytes, and facet arthropathy. Sclerosis of the sacrum, compatible with healing fractures. Acetabular and right iliac fixation hardware is partially seen. Pelvis findings are separately dictated. Soft tissues: No paravertebral hematoma or abscess. Partially visualized intra-abdominal structures unremarkable. IMPRESSION: Healing lower lumbar and sacral fractures. Stable height loss of L4, and L5. No new/acute finding. Bddj-wy-kcqedbek spondylosis. If there is high concern for further derangement, consider MRI evaluation. Dictated by: Cameron Hernandez M.D. on 06/29/2022 at 7:21 Approved by: Cameron Hernandez M.D. on 06/29/2022 at 7:25
[2022-06-29] MEDS: ACETAMINOPHEN 325 MG TABLET 650 MG PO (08:20)
== END 2022-06-29 09:14 | disposition home or self-care (01) ==
PROVIDERS: Emergency Provider Emergency Medicine; PCP Physician Assistant
DX: S51.812D Laceration without foreign body of left forearm, subsequent encounter (principal); M25.552 Pain in left hip; M54.50 Low back pain, unspecified; W18.30XA Fall on same level, unspecified, initial encounter
CPT/HCPCS: 72131; 72192; 99284

== ENCOUNTER 2022-07-02 13:17 | Emergency (ER) | payer MEDICARE, SELFPAY ==
[2022-07-02 13:51] VITALS: BP 117/66; PULSE 72; RESP 16; TEMP 36.4; O2SAT 97; BMI 25.8
--- NOTE | 2022-07-02 16:03 | PC.NURSE ---
responded to waiting room where pt had placed himself laying on the ground. Witnessed, no fall. Pt states he does not think stitches are ready to come out and is going to come back in 24-48 hours. 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 Wound does not appear well healed at this time. Pt encouraged to f/u as needed and indicated and return for any needs, concerns, worsening. Standby assist as he got off the ground. Ambulated out of ED w/o assist.
== END 2022-07-02 16:08 | disposition left against medical advice (07) ==
PROVIDERS: Emergency Provider Emergency Medicine; PCP Internal Medicine
CPT/HCPCS: 99281

== ENCOUNTER 2022-07-04 05:28 | Emergency (ER) | payer OTHER, SELFPAY ==
--- NOTE | 2022-07-04 05:53 | ED.GENADULT ---
HPI - General Adult General Chief complaint: Wound/Laceration Stated complaint: cut on left arm from chain saw Time Seen by Provider: 07/04/22 05:29 History of Present Illness HPI narrative: 71-year-old male nonsmoker with history of traumatic brain injury returns again for evaluation of left forearm wound. He had been seen initially on June 20 after suffering a deep laceration on the volar surface of his left forearm as a consequence of an accident with a chainsaw. He had multiple sutures placed and had been seen a few days ago but sutures were not yet ready to be taken out. He has no wound dehiscence, redness, warmth, lymphangitis or erythema. No pain, no numbness, tingling or weakness Related Data Home Medications Medication Instructions Recorded Confirmed sildenafil 50 mg tablet 0 mg PO DIRECTED 03/23/19 Previous Rx's Medication Instructions Recorded mupirocin 2 % topical ointment 1 applic topical DAILY #22 grams 06/23/22 white petrolatum (Vaseline jelly, 1 applic topical BID #113 grams 06/23/22 topical) Allergies Allergy/AdvReac Type Severity Reaction Status Date / Time No Known Drug Allergies Allergy Verified 06/23/22 12:40 Review of Systems Review of Systems Narrative: GENERAL: Denies chills, fatigue, malaise, fever, sweats. HEENT: Denies sinus pain, ear pain, sore throat, difficulty swallowing, dizziness. RESPIRATORY: Denies dyspnea, cough, wheezing, hemoptysis, sputum. CARDIOVASCULAR: Denies chest pain, palpitations, orthopnea, edema, GASTROINTESTINAL: Denies nausea, vomiting, abdominal pain, diarrhea, constipation, melena. : Denies dysuria, frequency, incontinence, hematuria, urinary retention. MUSCULOSKELETAL: denies weakness, joint pain, or bony pain SKIN: See HPI NEUROLOGIC: Denies weakness, headache, numbness, change in speech, confusion, seizures, incoordination. PSYCHIATRIC: No concerning psychosocial issues. 12 point review of systems is negative except for those stated above Patient History Medical History Hypertension Traumatic brain injury (~1986) Social History Smoking Status: Never smoker Smoking Status: Never smoker alcohol intake frequency: other Substance Use Type: does not use Exam Initial Vital Signs Initial Vital Signs: Vital Signs Pulse Rate 66 07/04/22 05:54 Respiratory Rate 18 07/04/22 05:54 Blood Pressure 129/67 07/04/22 05:54 Pulse Oximetry 96 07/04/22 05:54 Oxygen Delivery Method 07/04/22 05:54 Course Vital Signs Vital signs: Vital Signs - 8 hr 07/04/22 05:54 Pulse Rate 66 Respiratory Rate 18 Blood Pressure 129/67 Pulse Oximetry 96 Oxygen Delivery Method Room Air Medical Decision Making MDM Narrative Medical decision making narrative: Sutures easily removed by myself Discharge Plan Departure Patient Disposition: Home Clinical Impression: Encounter for wound re-check, Encounter for removal of sutures Instructions: How to Care for a Laceration After Repair Activity Restrictions/Additional Instructions: There is no evidence of an emergent or life threatening illness at this time, but follow up with your doctor in 1-2 days is recommended nonetheless to continue to rule out serious underlying causes of your symptoms. Please call the office for an appointment. Please return to the Emergency Department for any worsening or persistent symptoms. Please take medications as directed. Prescriptions: No Action sildenafil 50 mg tablet 0 mg PO DIRECTED mupirocin 2 % ointment 1 applic topical DAILY Qty: 22 0RF white petrolatum [Vaseline] Gel 1 applic topical BID Qty: 113 0RF Referrals: Tim Calero MD [Primary Care Provider] -
[2022-07-04 05:54] VITALS: BP 129/67; PULSE 66; RESP 18; O2SAT 96; BMI 25.8
== END 2022-07-04 06:18 | disposition home or self-care (01) ==
PROVIDERS: Emergency Provider Emergency Medicine; PCP Internal Medicine
DX: Z48.1 Encounter for planned postprocedural wound closure (principal)
CPT/HCPCS: 99281

== ENCOUNTER → 2022-07-12 17:07 | Outpatient (CLI) | payer OTHER, SELFPAY ==
--- NOTE | 2022-07-12 17:11 | DI.MRI.S_ITS ---
PROCEDURE: MR LUMBAR SPINE WO CON INDICATIONS: LUMBAR PAIN TECHNIQUE: Noncontrast sagittal T1 spin echo and T2 fast echo, sagittal STIR, and T2 fast spin echo through the lumbar spine. In cases with scoliosis, additional coronal T2 fast spin echo may be performed. COMPARISON: [facility], CT, CT LUMBAR SPINE WO CON, 06/29/2022, 8:04. FINDINGS: Image quality: Excellent. Alignment and Curvature: 5 lumbar type vertebral bodies are present by CT. There is loss of normal lumbar lordosis. 2 mm of retrolisthesis of L1 on L2. 3 mm of retrolisthesis of L5 on S1. Bone Marrow: Amarilis ill-defined branching linear low T2 signal intensity with surrounding ill-defined FLAIR signal w ill-defined linear low T1 signal intensity traverses the central and left superior L5 endplate with moderate surrounding ill-defined T2 signal elevation. Mild chronic appearing wedging of L4. Mild reactive signal throughout the endplates of the thoracolumbar spine. Spinal Cord: Conus medullaris terminates at the L1 level. Visualized cord demonstrates normal signal and size. Paraspinous Soft Tissues: No paravertebral masses. T12-L1: Severe disc height loss and desiccation. Mild diffuse disc bulge/osteophyte. Mild bilateral facet hypertrophy. Mild canal stenosis. Mild bilateral foraminal stenosis. L1-L2: Moderate disc height loss and desiccation. Mild diffuse disc bulge. Mild facet and ligamentum flavum hypertrophy. Mild canal stenosis. Mild bilateral foraminal stenosis. L2-L3: Moderate disc desiccation. Mild disc height loss and diffuse disc bulge. Mild facet and ligamentum flavum hypertrophy. Mild epidural lipomatosis. Mild canal stenosis. Mild bilateral foraminal stenosis. L3-L4: Severe disc height loss and desiccation. Mild diffuse disc bulge. Mild facet and ligamentum flavum hypertrophy. Mild epidural lipomatosis. Mild canal stenosis. Mild bilateral foraminal stenosis. L4-L5: Moderate disc height loss and desiccation. Mild diffuse disc bulge with superimposed right far lateral protrusion/osteophyte. Mild bilateral facet hypertrophy. Mild canal stenosis. Moderate to severe right and moderate left foraminal stenosis. Right L4 nerve root compression. L5-S1: Moderate disc height loss and desiccation. Mild diffuse disc bulge. Mild bilateral facet hypertrophy. Mild canal stenosis. Moderate subarticular foraminal stenosis bilaterally. IMPRESSION: 1. Bilateral sacral insufficiency fracture. 2. Mild subacute L5 compression fracture. 3. Multilevel degenerative disc and facet disease, as well as ligamentum flavum hypertrophy and epidural lipomatosis. 4. Mild multilevel canal stenoses. 5. Multilevel foraminal stenoses, worst at L4-L5 where there is associated intraforaminal nerve root compression. Recommend correlation with clinical symptoms to ascertain relevance of this finding. Dictated by: Luis Robert M.D. on 07/13/2022 at 13:26 Transcribed by: EDITA on 07/13/2022 at 13:30 Approved by: Luis Robert M.D. on 07/13/2022 at 16:31
== END ==
PROVIDERS: PCP Internal Medicine; Referring Provider Physician Assistant Surgical; Visit Provider Physician Assistant Surgical
DX: S32.010A Wedge compression fracture of first lumbar vertebra, initial encounter for closed fracture (principal); S32.040A Wedge compression fracture of fourth lumbar vertebra, initial encounter for closed fracture; M48.56XA Collapsed vertebra, not elsewhere classified, lumbar region, initial encounter for fracture; M48.58XA Collapsed vertebra, not elsewhere classified, sacral and sacrococcygeal region, initial encounter for fracture; M47.816 Spondylosis without myelopathy or radiculopathy, lumbar region; M51.36 Other intervertebral disc degeneration, lumbar region; M48.061 Spinal stenosis, lumbar region without neurogenic claudication
CPT/HCPCS: 72148

== ENCOUNTER → 2022-09-01 11:29 | Outpatient (CLI) | payer OTHER, SELFPAY ==
--- NOTE | 2022-09-01 11:31 | DI.MRI.S_ITS ---
PROCEDURE: MR LUMBAR SPINE WO CON INDICATIONS: Wedge compression fracture of fifth lumbar vertebr TECHNIQUE: Noncontrast sagittal T1 spin echo and T2 fast echo, sagittal STIR, and T2 fast spin echo through the lumbar spine. In cases with scoliosis, additional coronal T2 fast spin echo may be performed. COMPARISON: [facility], MR, MR LUMBAR SPINE WO CON, 07/12/2022, 17:41. FINDINGS: Image quality: Excellent. Alignment and Curvature: There is normal bony alignment. Bone Marrow: Again noted is bilateral sacral signal abnormality consistent with bilateral sacral insufficiency fractures. Again noted is a superior endplate compression fracture of L5 which continues to have bone marrow signal abnormality. The amount of signal abnormality is actually a bit increased, indicating interval Re fracture. There is slight interval increase in the amount of midportion vertebral body height loss, which now measures approximately 15%. No interval fractures at other levels. Old L1 compression. Spinal Cord: Conus medullaris terminates at the T12/L1 level. Visualized cord demonstrates normal signal and size. Paraspinous Soft Tissues: No paravertebral masses. T12-L1: Posterior disc post osteophyte. No canal stenosis or foraminal stenosis. L1-L2: Posterior disc post osteophyte. Facet hypertrophy. No canal stenosis or foraminal stenosis. L2-L3: Disc bulge. Facet hypertrophy. Mild canal stenosis. No significant foraminal stenosis. L3-L4: Disc bulge. Facet hypertrophy. Mild canal stenosis. No significant foraminal stenosis. L4-L5: Disc bulge. Facet hypertrophy. Mild canal stenosis. Moderate right foraminal stenosis and yelh-ga-lcsyfuog left foraminal stenosis. L5-S1: Disc bulge. Facet hypertrophy. No canal stenosis. Moderate bilateral foraminal stenosis. IMPRESSION: 1. As before, there are bilateral sacral insufficiency fractures. 2. Previously, there was a mild subacute L5 compression fracture. This has apparently refractured, with slight interval increase in vertebral body height loss. 3. Findings, otherwise, are stable. Dictated by: Ean Garsia M.D. on 09/03/2022 at 8:57 Approved by: Ean Garsia M.D. on 09/03/2022 at 9:05
== END ==
PROVIDERS: PCP Internal Medicine; Referring Provider Orthopaedic Surgery Orthopaedic Surgery of the Spine; Visit Provider Orthopaedic Surgery Orthopaedic Surgery of the Spine
DX: S32.050A Wedge compression fracture of fifth lumbar vertebra, initial encounter for closed fracture (principal); M84.48XG Pathological fracture, other site, subsequent encounter for fracture with delayed healing
CPT/HCPCS: 72148

== ENCOUNTER 2022-12-24 02:32 | Emergency (ER) | payer OTHER, SELFPAY ==
[2022-12-24 02:39] VITALS: BP 126/79; PULSE 72; RESP 18; TEMP 36.6; O2SAT 96; BMI 26.5
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
[2022-12-24] MEDS: OXYCODONE/ACETAMINOPHEN 5/325 TABLET 1 TAB PO (03:35)
[2022-12-24 04:33] VITALS: BP 118/77; PULSE 74; RESP 18; O2SAT 96
== END 2022-12-24 04:34 | disposition home or self-care (01) ==
PROVIDERS: Emergency Provider Emergency Medicine; PCP Internal Medicine
DX: G62.9 Polyneuropathy, unspecified (principal); M79.604 Pain in right leg; W07.XXXA Fall from chair, initial encounter
CPT/HCPCS: 99283

== ENCOUNTER 2023-09-25 12:35 | Outpatient (CLI) | payer OTHER, SELFPAY ==
[2023-09-25 12:55] VITALS: BP 121/71; PULSE 68; RESP 18; TEMP 36.5; O2SAT 96
--- NOTE | 2023-09-25 13:00 | DI.RAD.S_ITS ---
PROCEDURE: PAIN L INTERLAMINAR/CAUDAL INJ INDICATIONS: radiculopathy COMPARISON: None. FINDINGS: Fluoroscopic spot filming was performed to verify placement of spinal needles at the right L5-S1 level(s), as labeled on the films. Appropriate location(s) of the needle tip(s) was confirmed by injection of iodinated contrast. IMPRESSION: Fluoroscopic support for right L5-S1 interlaminar epidural steroid injection. Please see separate procedure note for further details. Dictated by: Clayton Pierre M.D. on 09/25/2023 at 14:27 Approved by: Clayton Pierre M.D. on 09/25/2023 at 14:28
[2023-09-25 13:10] VITALS: BP 135/78; PULSE 64; RESP 12; O2SAT 95
[2023-09-25] MEDS: iopamidoL 15 ML VIAL 3 ML INJ (13:12)
[2023-09-25] MEDS: DEXAMETHASONE 10 MG/ML VIAL INJ (13:13)
[2023-09-25 13:15] VITALS: BP 121/73; PULSE 64; RESP 20; O2SAT 95
[2023-09-25 13:20] VITALS: BP 116/77; PULSE 68; RESP 16; O2SAT 96
--- NOTE | 2023-09-25 15:35 | P.PCN_ITS ---
Date/Time/Diagnoses Date of procedure: 09/25/23 Time of procedure: 13:00 Procedure Notes Physician: Benjamín Diallo Total Fluoroscopy time (seconds): 13 Total sedation minutes: 0 Procedure in detail & Post-procedure care: L5-S1 Interlaminar Epidural Steroid Injection Indications: Jagdeep is presenting for treatment of lumbar radiculopathy with low back and leg pain. Preoperative diagnosis: Lumbar radiculopathy Postoperative diagnosis: Same Focused Examination: Ax3 Mood and affect are normal Vital Signs: VSS Consent: Following review of allergies and potential side effects/complications, including, but not necessarily limited to, infection, allergic reaction, local tissue breakdown, stroke, temporary or permanent nerve injury, paralysis, and possible , the patient indicated that they understood and agreed to proceed.? An informed consent document was signed by the patient, witnessed by a nurse and placed in the patient's chart.? Additionally, other treatment options including medications and physical therapy were reviewed with the patient. All questions were answered. Site was then marked. Anesthesia: Local Position: Prone Monitoring: NIBP, Pulse oximetry, 3 lead EKG Needle used: 18 G 3.5? Tuohy Contrast: Isovue 300M Injectate: Dexamethasone 10 mg with 1% lidocaine 2 mL Technique: The skin was prepped with chloraprep and then draped in a sterile fashion. Time out was performed as per protocol. Oxygen applied via NC. Skin and subcutaneous structures of the needle entry site was then infiltrated with 3 mL of lidocaine 1%. Under AP, lateral and contralateral oblique fluoroscopic control, the Tuohy needle was guided into the L5-S1 epidural space. The space was accessed with loss of resistance technique. Isovue 300M was then injected and the spread was consistent with the epidural space. There was no evidence for intravascular or intrathecal uptake. After negative aspiration, the above- mentioned injectate was then slowly administered and the needle withdrawn. The patient expressed no unusual discomfort or paresthesias during the injection. Band-Aids applied to injection sites. EBL: less than 1 ml Complications: None Post Procedure: Patient was taken to the recovery and monitored. The patient was provided a Pain Log to continue to record the patient's response to the target- specific procedure prior to the patient's follow-up visit with the referring physician. Patient was stable upon discharge. Detailed post procedure instructions were provided. Patient was asked to call in the event of worsening pain, fever, weakness, numbness or bladder or bowel incontinence.
== END 2023-09-25 13:47 | disposition home or self-care (01) ==
LOC: RAD 12:36
PROVIDERS: PCP Internal Medicine; Referring Provider Anesthesiology; Visit Provider Anesthesiology
DX: M54.16 Radiculopathy, lumbar region (principal)
CPT/HCPCS: 62323; J1100

== ENCOUNTER 2023-10-30 08:22 | Outpatient (CLI) | payer OTHER, SELFPAY ==
[2023-10-30 08:40] VITALS: BP 116/68; PULSE 72; RESP 20; TEMP 36.2; O2SAT 96
--- NOTE | 2023-10-30 09:00 | DI.RAD.S_ITS ---
PROCEDURE: PAIN L INTERLAMINAR/CAUDAL INJ INDICATIONS: RADICULOPATHY COMPARISON: [facility], CR, XR LUMBAR SPINE WITH FLEXION EXTENSION 5 VIEWS, 05/27/2023, 11:21. [facility], XA, PAIN L INTERLAMINAR/CAUDAL INJ, 09/25/2023, 13:11. FINDINGS: Fluoroscopic spot filming was performed to verify placement of spinal needles at the L5-S1 level(s), as labeled on the films. Appropriate location(s) of the needle tip(s) was confirmed by injection of iodinated contrast. Left pelvic hardware partially visualized. IMPRESSION: Intraoperative guidance provided. Dictated by: Kashmir Zepeda M.D. on 10/30/2023 at 12:01 Approved by: Kashimr Zepeda M.D. on 10/30/2023 at 12:02
[2023-10-30 09:15] VITALS: BP 138/71; PULSE 65; RESP 15; O2SAT 97
[2023-10-30] MEDS: iopamidoL 15 ML VIAL 3 ML INJ (09:15)
[2023-10-30] MEDS: DEXAMETHASONE 10 MG/ML VIAL INJ (09:15)
[2023-10-30 09:20] VITALS: BP 135/69; PULSE 63; RESP 20; O2SAT 96
[2023-10-30 09:24] VITALS: BP 109/64; PULSE 65; RESP 16; O2SAT 94
--- NOTE | 2023-10-30 12:40 | P.PCN_ITS ---
Date/Time/Diagnoses Date of procedure: 10/30/23 Time of procedure: 09:00 Procedure Notes Physician: Benjamín Diallo Total Fluoroscopy time (seconds): 10 Total sedation minutes: 0 Procedure in detail & Post-procedure care: L5-S1 Interlaminar Epidural Steroid Injection Indications: Jagdeep is presenting for treatment of lumbar radiculopathy with low back and leg pain. Preoperative diagnosis: Lumbar radiculopathy Postoperative diagnosis: Same Focused Examination: Ax3 Mood and affect are normal Vital Signs: VSS Consent: Following review of allergies and potential side effects/complications, including, but not necessarily limited to, infection, allergic reaction, local tissue breakdown, stroke, temporary or permanent nerve injury, paralysis, and possible , the patient indicated that they understood and agreed to proceed.? An informed consent document was signed by the patient, witnessed by a nurse and placed in the patient's chart.? Additionally, other treatment options including medications and physical therapy were reviewed with the patient. All questions were answered. Site was then marked. Anesthesia: Local Position: Prone Monitoring: NIBP, Pulse oximetry, 3 lead EKG Needle used: 18 G 3.5? Tuohy Contrast: Isovue 300M Injectate: Dexamethasone 10 mg with 1% lidocaine 2 mL Technique: The skin was prepped with chloraprep and then draped in a sterile fashion. Time out was performed as per protocol. Oxygen applied via NC. Skin and subcutaneous structures of the needle entry site was then infiltrated with 3 mL of lidocaine 1%. Under AP, lateral and contralateral oblique fluoroscopic control, the Tuohy needle was guided into the L5-S1 epidural space. The space was accessed with loss of resistance technique. Isovue 300M was then injected and the spread was consistent with the epidural space. There was no evidence for intravascular or intrathecal uptake. After negative aspiration, the above- mentioned injectate was then slowly administered and the needle withdrawn. The patient expressed no unusual discomfort or paresthesias during the injection. Band-Aids applied to injection sites. EBL: less than 1 ml Complications: None Post Procedure: Patient was taken to the recovery and monitored. The patient was provided a Pain Log to continue to record the patient's response to the target- specific procedure prior to the patient's follow-up visit with the referring physician. Patient was stable upon discharge. Detailed post procedure instructions were provided. Patient was asked to call in the event of worsening pain, fever, weakness, numbness or bladder or bowel incontinence.
== END 2023-10-30 09:30 | disposition home or self-care (01) ==
LOC: RAD 08:23
PROVIDERS: PCP Internal Medicine; Referring Provider Anesthesiology; Visit Provider Anesthesiology
DX: M54.16 Radiculopathy, lumbar region (principal)
CPT/HCPCS: 62323; J1100

== ENCOUNTER 2024-01-05 17:31 | Emergency (ER) | payer OTHER, SELFPAY ==
[2024-01-05 17:42] VITALS: BP 101/69; PULSE 70; RESP 18; TEMP 36.3; O2SAT 96; BMI 27.2
--- NOTE | 2024-01-05 17:51 | DI.CT.S_ITS ---
PROCEDURE: CT HEAD/BRAIN WO CON INDICATIONS: fall, hit head, neck pain TECHNIQUE: Noncontrast 4.5 mm thick angled axial sections acquired from the foramen magnum to the vertex, with coronal and sagittal reformats. For radiation dose reduction, the following was used: automated exposure control, adjustment of mA and/or kV according to patient size. COMPARISON: [facility], CT, CT HEAD/BRAIN WO CON, 03/23/2019, 12:48. FINDINGS: Image quality: Diagnostic. CSF spaces: Basal cisterns are patent. No extra-axial fluid collections. The ventricles are symmetric in size and shape. Brain: No intracranial bleeds or masses. There is cerebral volume loss for age, with resultant ventricular and sulcal prominence. There are periventricular and deep white matter chronic small vessel ischemic changes. There is intracranial internal carotid artery atherosclerosis. Skull and face: Calvarium and visualized facial bones appear intact, without suspicious lesions. Sinuses: Visualized sinuses and mastoids are clear. IMPRESSION: No acute intracranial pathology. Dictated by: Ramon Blair M.D. on 01/05/2024 at 17:12 Approved by: Ramon Blair M.D. on 01/05/2024 at 17:13
--- NOTE | 2024-01-05 17:51 | DI.CT.S_ITS ---
PROCEDURE: CT CERVICAL SPINE WO CON INDICATIONS: fall, hit head, neck pain TECHNIQUE: Noncontrast 3 mm thick sections acquired from the skull base to the T4 level. Sagittal and coronal reformats were then constructed. For radiation dose reduction, the following was used: automated exposure control, adjustment of mA and/or kV according to patient size. COMPARISON: None. FINDINGS: Image quality: Excellent. Bones: No fractures or dislocations. Straightening of the normal cervical lordosis. Multilevel degenerative changes of the cervical spine. Diffusely decreased osseous mineralization. Visualized superior ribs are intact. Soft tissues: Prevertebral soft tissues are normal in thickness. No paravertebral hematomas. No apical pneumothoraces. IMPRESSION: No displaced fracture or traumatic subluxation. Dictated by: Ramon Blair M.D. on 01/05/2024 at 17:15 Approved by: Ramon Blair M.D. on 01/05/2024 at 17:17
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
[2024-01-05 20:58] VITALS: BP 121/70; PULSE 73; RESP 18; O2SAT 98
== END 2024-01-05 20:59 | disposition home or self-care (01) ==
PROVIDERS: Emergency Provider Emergency Medicine; PCP Internal Medicine
DX: M54.2 Cervicalgia (principal); W05.2XXA Fall from non-moving motorized mobility scooter, initial encounter
CPT/HCPCS: 70450; 72125; 99281; 99283

== ENCOUNTER 2024-07-01 14:15 | Emergency (ER) | payer OTHER, SELFPAY ==
[2024-07-01 14:25] VITALS: BP 129/75; PULSE 62; O2SAT 100
[2024-07-01 14:30] VITALS: PULSE 67; O2SAT 96
[2024-07-01 14:31] VITALS: BP 129/75; PULSE 65; RESP 20; TEMP 37.2; O2SAT 96; BMI 24.3
--- NOTE | 2024-07-01 14:45 | ED.BACK ---
HPI - Back Pain/Injury General Chief Complaint: Back Pain/Injury Stated Complaint: Fall Yesterday, Back Pain Time Seen by Provider: 07/01/24 14:15 Source: patient and EMS History of Present Illness HPI Narrative: 73-year-old gentleman with a history metastatic prostate cancer, 8 reported pathologic fractures throughout his back including L3-4 and 5, history of traumatic brain injury was bringing fire wood inside last night stumbled fell backward landing on his buttocks and lower back. Was able to get up but is having increasing pain today and comes in by medics for further evaluation. He requests ibuprofen and Tylenol to help with the pain control. When discussing imaging studies he notes that his bone density is so low that x-rays have repeatedly been negative with positive CT scans for similar complaints. He requests we start with CT scans which seems entirely appropriate. Related Data Home Medications Medication Instructions Recorded Confirmed levothyroxine 88 mcg tablet 88 mcg PO DAILY 08/20/23 12/24/23 tamsulosin 0.4 mg capsule (Flomax) 0.4 mg PO DAILY 08/20/23 12/24/23 Previous Rx's Medication Instructions Recorded meloxicam 7.5 mg tablet 7.5 mg PO DAILY #30 tabs 12/24/23 Allergies Allergy/AdvReac Type Severity Reaction Status Date / Time No Known Drug Allergies Allergy Verified 01/05/24 17:42 Review of Systems Review of Systems Narrative: Pertinent positive and negative findings as per HPI Patient History Medical History (Updated 07/01/24 @ 16:44 by Nallely Coughlin MD) Thoracic back pain Neck pain Low back pain Lumbar foraminal stenosis Lumbar spondylosis Lumbar radiculopathy Hip pain Hereditary and idiopathic neuropathy Compression fracture of L3 vertebra Rib fractures Sacral fracture Compression fracture of L5 vertebra Lower urinary tract symptoms Prostate cancer Peripheral neuropathy Hypertension Traumatic brain injury (~1986) Social History Smoking Status: Never smoker Smoking Status: Never smoker alcohol intake frequency: other Exam Initial Vital Signs Initial Vital Signs: Vital Signs Pulse Rate 62 07/01/24 14:25 Blood Pressure 129/75 07/01/24 14:25 Pulse Oximetry 100 07/01/24 14:25 General: Alert, tangential, seems to be in a moderate amount of pain Respiratory: Able to speak in full sentences, no obvious respiratory distress Skin: No obvious rashes, warm and dry, no bruising to the hips or buttocks Spine/pelvis: No point tenderness along the lumbar spine, sacrum, pelvis. Patient has significant difficulty getting up to stand and walking Neurologic: Grossly intact no obvious asymmetries or abnormalities Psych: appropriate insight, cooperative Course Orders Ordered: ED Orders 07/01/24 14:49 CT lumbar spine wo con Stat 07/01/24 14:50 CT pelvis wo con Stat Discontinued Medications Acetaminophen (Acetaminophen 325 Mg Tablet) 325 mg PO NOW ONE Stop: 07/01/24 14:50 Last Admin: 07/01/24 14:55 Dose: 325 mg Documented By: CTS Ibuprofen (Ibuprofen 400 Mg Tablet) 400 mg PO NOW ONE Stop: 07/01/24 14:50 Last Admin: 07/01/24 14:55 Dose: 400 mg Documented By: CTS Vital Signs Vital signs: Vital Signs - 8 hr 07/01/24 14:25 07/01/24 14:25 07/01/24 14:30 Temperature Pulse Rate 62 67 Respiratory Rate Blood Pressure 129/75 Pulse Oximetry 100 96 Oxygen Delivery Method 07/01/24 14:31 07/01/24 15:03 Temperature 98.9 F Pulse Rate 65 62 Respiratory Rate 20 Blood Pressure 129/75 Pulse Oximetry 96 95 Oxygen Delivery Method Room Air MDM - Back Pain/Injury Lab Data Labs: Urine Dip Bedside Urine Glucose Negative Bedside Urine Bilirubin - Negative Bedside Urine Ketone - Negative Urine Specific [place] 1.015 Bedside Urine Occult Blood - Negative Bedside Urine pH 6.0 Bedside Urine Protein - Negative Bedside Urine Urobilinogen - Negative Bedside Urine Nitrite - Negative Bedside Urine Leukocytes - Negative Esterase MDM Narrative Medical decision making narrative: CC: Fall last night with new lumbar, pelvic and right hip pain Complicating co-morbidities: Multiple prior osteoporotic fractures of the spine, known prostate cancer Data collected from: patient Medical records reviewed: Notes from [facility] from June 08 of this year are reviewed. Patient has completed a course Lupron, radiation was completed on July 27, 2021. Notes her made of osteoporosis, lumbar fractures and sacral insufficiency fractures. He sees a chiropractor as well as receiving steroid injections. Differential considered: Contusion, retroperitoneal bleeding, new compression fractures, hip fracture Exam documented above, pertinent findings include: Patient has trouble standing upright completely. He is tender at the hip joint with external rotation of his right leg Imaging studies independently reviewed: CT scan of the lumbar spine shows stable fractures at L1, 3, 4, [address] scan of the pelvis shows postoperative changes with plates and screws in the right pelvis with no suggestion of hardware failure or loosening. Three screws within the right femoral neck appropriately placed. No new findings Treatments: Oral ibuprofen and Tylenol Discussion: 73-year-old gentleman with mechanical fall last night increased pelvic hip and lumbar pain. CT scans of affected area do not show any new findings, these areas have all had previous fractures, hardware and compression fractures. The ibuprofen and Tylenol did seem to help with his pain. He has gotten up to go to the bathroom multiple times during the ER stay, apparently voids almost hourly and was not interested in further discussing that. Reassurance is given, I do not think there was any indication for additional blood work, imaging or hospitalization he is safe for discharge Discharge Plan Departure Patient Disposition: Home Clinical Impression: Fall Qualifiers: Encounter type: initial encounter Qualified Code(s): W19.XXXA - Unspecified fall, initial encounter Contusion of right hip Qualifiers: Encounter type: initial encounter Qualified Code(s): S70.01XA - Contusion of right hip, initial encounter Instructions: DI for Contusion Activity Restrictions/Additional Instructions: Thank you for coming in today We did CT scans of your lumbar spine pelvis and hips. I can see all of the previous fractures, hardware and screws. There are no new fractures, all of the previous orthopedic interventions are appropriate with no signs of hardware loosening or additional concerns. You are going to hurt but you did not break anything this time. Congratulations. You likely are going to have more pain tomorrow. Using 400 mg of ibuprofen (2 [id number] pills) and 1 Tylenol every 6 hours can be very helpful in controlling pain. Ice or heat to the areas of concern can be helpful. Being as mobile as you are able can also be helpful in early healing. If you find that you are getting worse or develop any new symptoms, please feel free to return to the emergency department for further evaluation. Prescriptions: No Action meloxicam 7.5 mg tablet 7.5 mg PO DAILY Qty: 30 1RF tamsulosin [Flomax] 0.4 mg capsule 0.4 mg PO DAILY levothyroxine 88 mcg tablet 88 mcg PO DAILY Referrals: Tim Calero MD [Primary Care Provider] - Stand Alone Forms: Patient Portal/API/Survey
--- NOTE | 2024-07-01 14:49 | DI.CT.S_ITS ---
PROCEDURE: CT LUMBAR SPINE WO CON INDICATIONS: fall TECHNIQUE: Noncontrast 3 mm thick sections acquired from the T12 level to the sacrum. Sagittal and coronal reformats were constructed. For radiation dose reduction, the following was used: automated exposure control. COMPARISON: [facility], CT, CT LUMBAR SPINE WO CON, 06/29/2022, 8:04. [facility], CR, XR LUMBAR SPINE WITH FLEXION EXTENSION 5 VIEWS, 05/27/2023, 11:21. [facility], MR, MR LUMBAR SPINE WO CON, 09/01/2022, 11:54. FINDINGS: Image quality: There is artifact associated with the metallic hardware. Artifact from the metallic hardware is reduced by metal reconstruction algorithm. Bones: There is a stable mild anterior wedge deformity of L1. Stable L3, L4, and L5 fractures can be seen. No acute vertebral body compression fractures. No suspicious lytic or blastic bony lesions. A stable lucency can be seen involving the inferior endplate of T11, which is attributed to a remote Schmorl's node. No pars defects. Minimal S shaped scoliotic curvature is seen. No focal AP alignment abnormality is seen. Multiple levels of degenerative change can be seen, which are similar to prior imaging. Postoperative change of the right pelvis and right proximal femur can be partially seen. Soft tissues: No retroperitoneal masses or hematomas. Visualized aorta is normal in caliber. Atherosclerotic calcification is noted. IMPRESSION: No acute fracture can be seen. Stable fractures of L1, L3, L4, and L5 can be seen. Dictated by: Robert Samaniego M.D. on 07/01/2024 at 14:18 Approved by: Robert Samaniego M.D. on 07/01/2024 at 14:23
--- NOTE | 2024-07-01 14:50 | DI.CT.S_ITS ---
PROCEDURE: CT PEL WO CON INDICATIONS: fall TECHNIQUE: Noncontrast 3 mm axial sections acquired through the bony pelvis, with coronal and sagittal reformatting. COMPARISON: [facility], CT, CT PELVIS WITH CONTRAST, 05/11/2021, 8:46. [facility], CT, CT LUMBAR SPINE WO CON, 07/01/2024, 14:53. [facility], CT, CT PEL WO CON, 06/29/2022, 8:04. FINDINGS: Image quality: There is artifact associated with the metallic hardware. Artifact from the metallic hardware is reduced by metal reconstruction algorithm. Bones: Postoperative changes are seen, plate and screw fixation of the right pelvis. No findings of hardware failure or hardware loosening are seen. There also 3 screws seen within the right femoral neck. One of these screws approaches the articular cortex, as on series 2, image 57 and on series 4, image 40, which is a stable finding. Remote pelvis and sacral fractures can be seen. No acute fractures are seen. No dislocation. Remote posttraumatic and degenerative changes can be seen of the visualized lower lumbar spine. Soft tissues: No dilated loops of small bowel are seen. No significant colonic abnormality is seen. Prostate region clips are seen. No significant bladder wall thickening can be seen. No groin hernia can be seen. No enlarged lymph nodes are seen. IMPRESSION: Negative for acute fracture. Remote fractures and postoperative change can be seen. Dictated by: Robert Samaniego M.D. on 07/01/2024 at 14:36 Approved by: Robert Samaniego M.D. on 07/01/2024 at 14:39
[2024-07-01] MEDS: IBUPROFEN 400 MG TABLET PO (14:55)
[2024-07-01] MEDS: ACETAMINOPHEN 325 MG TABLET PO (14:55)
[2024-07-01 15:03] VITALS: PULSE 62; O2SAT 95
[2024-07-01 16:51] VITALS: BP 122/65; PULSE 59; O2SAT 94
== END 2024-07-01 16:45 | disposition home or self-care (01) ==
PROVIDERS: Emergency Provider Emergency Medicine; PCP Internal Medicine
DX: S70.01XA Contusion of right hip, initial encounter (principal); M54.50 Low back pain, unspecified; W01.0XXA Fall on same level from slipping, tripping and stumbling without subsequent striking against object, initial encounter; Z98.890 Other specified postprocedural states
CPT/HCPCS: 72131; 72192; 81003; 99283; 99284

== ENCOUNTER → 2024-08-28 11:19 | Outpatient (CLI) | payer OTHER, SELFPAY ==
--- NOTE | 2024-08-28 11:21 | DI.RAD.S_ITS ---
PROCEDURE: XR LUMBAR SPINE MIN 4V INDICATIONS: BACK PAIN TECHNIQUE: 5 views of the lumbar spine were acquired, including bilateral oblique views. COMPARISON: [facility], CT, CT LUMBAR SPINE WO [facility], 07/01/2024, 14:53. FINDINGS: Bones: 5 nonrib-bearing vertebrae are present. Straightening of the normal lumbar lordosis. Mild chronic height loss of several lumbar vertebral bodies is stable. No acute vertebral body compression fractures. No suspicious bony lesions. There is multilevel facet arthropathy, worse at L4-5 and L5-S1. Multilevel disc height loss with degenerative endplate changes and spurring is present. Right pelvic hardware and femoral neck screws in place. Soft tissues: Overlying bowel gas pattern is normal. No suspicious soft tissue calcifications. Atherosclerotic vascular calcifications. Oblique images: No definite pars defects. IMPRESSION: Multilevel degenerative changes of the lumbar spine are redemonstrated. No acute compression deformities. Dictated by: Ramon Blair M.D. on 08/28/2024 at 12:02 Approved by: Ramon Blair M.D. on 08/28/2024 at 12:04
== END ==
PROVIDERS: Referring Provider Physical Medicine & Rehabilitation; Visit Provider Physical Medicine & Rehabilitation
DX: M48.061 Spinal stenosis, lumbar region without neurogenic claudication (principal); S32.030A Wedge compression fracture of third lumbar vertebra, initial encounter for closed fracture; S32.050A Wedge compression fracture of fifth lumbar vertebra, initial encounter for closed fracture; M47.816 Spondylosis without myelopathy or radiculopathy, lumbar region; M47.817 Spondylosis without myelopathy or radiculopathy, lumbosacral region
CPT/HCPCS: 72110

== ENCOUNTER → 2024-09-09 16:19 | Outpatient (CLI) | payer OTHER, SELFPAY ==
--- NOTE | 2024-09-09 16:21 | DI.MRI.S_ITS ---
P ROCEDURE: MR LUMBAR SPINE WO CON INDICATIONS: F/u Sacral Fxs TECHNIQUE: Noncontrast sagittal T1 spin echo and T2 fast echo, sagittal STIR, and T2 fast spin echo through the lumbar spine. In cases with scoliosis, additional coronal T2 fast spin echo may be performed. COMPARISON: [facility], CT, CT LUMBAR SPINE WO CON, 07/01/2024, 14:53. [facility], MR, MR LUMBAR SPINE WO CON, 09/01/2022, 11:54. FINDINGS: Image quality: Excellent Mild retrolisthesis T12-L1. Moderate superior endplate fracture of L3, without marrow edema, chronic, but is new from prior exam. Moderate superior endplate fracture L4, chronic, unchanged from prior exam. Mild superior endplate fracture of L5, chronic, unchanged from prior exam. No acute vertebral body fracture of the lumbar spine. Multilevel fibrovascular endplate change.No suspicious marrow replacing lesion. Multilevel disc bulge and disc desiccation. Conus terminates at the level of T12-L1, and is unremarkable. Right neural foraminal stenosis: Mild at L1-2, L2-3, L3-4, L4-5, and L5-S1. Left neural foraminal stenosis: Mild at L1-2, L2-3, L3-4, L4-5. Moderate at L5-S1. Axial images: T12-L1: Mild disc bulge. Mild bilateral facet arthropathy. Mild central canal stenosis. L1-2: Disc bulge. Mild bilateral facet arthropathy. No central canal stenosis. L2-3: Disc bulge. Mild bilateral facet arthropathy. Mild central canal stenosis. L3-4: Disc bulge. Mild bilateral facet arthropathy. No central canal stenosis. L4-5: Disc bulge. Moderate bilateral facet arthropathy. No central canal stenosis. L5-S1: Mild bilateral facet arthropathy. Mild disc bulge. No central canal stenosis. Susceptibility artifact about the right posterior iliac wing. Improving marrow edema of bilateral sacrum, partially visualized, likely representing healing sacral insufficiency fracture. No abdominal aortic aneurysm. IMPRESSION: 1. Moderate superior endplate fracture of L3, chronic, but is new from prior exam. 2. Additional chronic endplate fracture L4 on L5, unchanged from prior exam. 3. Multilevel degenerative changes of the lumbar spine, most pronounced at L2-3, where there is mild central canal stenosis , slightly progressed from prior exam. 4. Additional multilevel mild neural foraminal stenosis. 5. Healing bilateral sacral insufficiency fracture, partially visualized. Recommend further evaluation with dedicated sacrum MRI. Dictated by: Maricruz Freeman M.D. on 09/09/2024 at 17:23 Approved by: Maricruz Freeman M.D. on 09/09/2024 at 17:42
--- NOTE | 2024-09-09 16:21 | DI.MRI.S_ITS ---
PROCEDURE: MR HIP RT WO CON INDICATIONS: Right hip pain s/p pelvic fx TECHNIQUE: Noncontrast coronal T1 spin echo and STIR through the bony pelvis. Coronal and axial T2 fast spin echo with fat saturation, sagittal T1 spin echo, and oblique axial T2 fast spin echo with fat saturation through the hip. COMPARISON: [facility], CT, CT PEL WO CON, 07/01/2024, 14:53. FINDINGS: Image quality: Excellent. Susceptibility artifact due to the right femoral and right acetabular fixation hardware limits evaluation. Bones: Mild marrow edema is present throughout the sacroiliac, left inferior iliac wing, and left medial acetabular wall (09/09-). Additional foci of marrow edema are present at the parasymphyseal bilateral superior and inferior pubic rami (09/26-). There is CAM morphology of the bilateral proximal femurs. Joints: There is mild bilateral sacroiliac osteoarthritis, without reactive marrow changes. Susceptibility artifact limits evaluation of the right hip. There is no significant hip joint effusion or pericapsular edema. Acetabular cartilage: Cannot be evaluated. Labrum: Cannot be evaluated. Bursae: There is no increased fluid within the greater trochanteric or iliopsoas bursae. Muscles: The muscles about the pelvis appear normal in signal and size. Tendons: The tendons about the pelvis appear normal in signal and size. Nerves: The sciatic nerves are normal in signal and caliber. Vessels: The dominant flow voids are preserved. Other: Please see the 09/09/2024 MRI lumbar spine report for details regarding the lumbar spine. IMPRESSION: 1. Subacute, healing insufficiency fractures versus post radiation changes of the sacrum, left iliac wing, left acetabular roof, and bilateral superior/inferior pubic rami. 2. Mild bilateral sacroiliac osteoarthritis. 3. No acute MR abnormality of the right hip, given the limitations noted above. Dictated by: Everardo Bower M.D. on 09/10/2024 at 18:53 Approved by: Everardo Bower M.D. on 09/10/2024 at 19:03
== END ==
PROVIDERS: PCP Internal Medicine; Referring Provider Physical Medicine & Rehabilitation; Visit Provider Physical Medicine & Rehabilitation
DX: S32.030A Wedge compression fracture of third lumbar vertebra, initial encounter for closed fracture (principal); S32.050A Wedge compression fracture of fifth lumbar vertebra, initial encounter for closed fracture; S32.10XA Unspecified fracture of sacrum, initial encounter for closed fracture; M25.559 Pain in unspecified hip; M48.061 Spinal stenosis, lumbar region without neurogenic claudication; M48.07 Spinal stenosis, lumbosacral region; M51.369 Other intervertebral disc degeneration, lumbar region without mention of lumbar back pain or lower extremity pain; M51.379 Other intervertebral disc degeneration, lumbosacral region without mention of lumbar back pain or lower extremity pain; M47.816 Spondylosis without myelopathy or radiculopathy, lumbar region; M47.817 Spondylosis without myelopathy or radiculopathy, lumbosacral region; M47.818 Spondylosis without myelopathy or radiculopathy, sacral and sacrococcygeal region
CPT/HCPCS: 72148; 73721

== ENCOUNTER → 2024-10-23 15:28 | Outpatient (CLI) | payer OTHER, SELFPAY ==
--- NOTE | 2024-10-23 15:31 | DI.RAD.S_ITS ---
PROCEDURE: XR LUMBAR SPINE MIN 4V INDICATIONS: COMPRESSION FRACTURES TECHNIQUE: 5 views of the lumbar spine were acquired, including bilateral oblique views. COMPARISON: [facility], , XR LUMBAR SPINE MIN 4V, 08/28/2024, 11:30. FINDINGS: Bones: 5 nonrib-bearing vertebrae are present. There is normal bony alignment. Chronic appearing mild superior endplate anterior wedge compression deformities are noted at L1, L3 and L4 levels not significantly changed from previous study. No acute vertebral body compression fractures. Degenerative endplate changes are noted throughout lumbar spine. No suspicious bony lesions. Extensive postsurgical changes are noted in right hemipelvis unchanged from prior study. No obvious hardware loosening or failure is seen. Soft tissues: Overlying bowel gas pattern is normal. No suspicious soft tissue calcifications. Oblique images: No pars defects. Bilateral bony foraminal stenosis are likely present at L3-4 through L5-S1 levels. IMPRESSION: 1. Stable mild superior endplate anterior wedge compression deformities at L1, L3 and L4 levels. No acute vertebral body compression fracture. Degenerative disc disease throughout lumbar spine. 2. No pars defects. Bilateral bony foraminal stenosis in mid to lower lumbar spine as above. 3. Postsurgical changes in right hemipelvis. No gross hardware loosening or failure. Dictated by: Noe Roland M.D. on 10/23/2024 at 15:49 Approved by: Noe Roland M.D. on 10/23/2024 at 15:51
== END ==
PROVIDERS: PCP Internal Medicine; Referring Provider Physical Medicine & Rehabilitation; Visit Provider Physical Medicine & Rehabilitation
DX: S32.030A Wedge compression fracture of third lumbar vertebra, initial encounter for closed fracture (principal); S32.050A Wedge compression fracture of fifth lumbar vertebra, initial encounter for closed fracture; S32.010A Wedge compression fracture of first lumbar vertebra, initial encounter for closed fracture; M51.369 Other intervertebral disc degeneration, lumbar region without mention of lumbar back pain or lower extremity pain; M48.061 Spinal stenosis, lumbar region without neurogenic claudication; Z98.890 Other specified postprocedural states
CPT/HCPCS: 72110

== ENCOUNTER 2024-11-03 10:54 | Outpatient (CLI) | payer OTHER, SELFPAY ==
[2024-11-03] VITALS (8 sets, daily range): BP systolic 113–137; BP diastolic 62–76; PULSE 55–72; RESP 14–16; TEMP 36.1; O2SAT 95–99
--- NOTE | 2024-11-03 11:32 | P.PCN_ITS ---
Date/Time/Diagnoses Date of procedure: 11/03/24 Time of procedure: 11:32 Pre-procedure diagnosis: 1. HNP WITH RADICULAR FEATURES, 2. MULTILEVEL CENTRAL STENOSIS, Post-procedure diagnosis: same Procedure Notes Procedure: 1. FLUOROSCOPICALLY GUIDED CONTRAST CONTROLLED INTERLAMINAR EPIDURAL STEROID INJECTION - L3/4 Indications: Jagdeep is referred for treatment of Bilateral Foraminal Stenosis L>R LE symptoms. Physician: Roshan Osman Total Fluoroscopy time (seconds): 7 Total sedation minutes: 0 Complications: none Procedure in detail & Post-procedure care: FINDINGS Multilevel Central Spinal Stenosis with Nerve Root Compression DESCRIPTION OF PROCEDURE Fluoroscopically guided, contrast-controlled L3/4 translaminar epidural steroid injection. Following review of allergy and review of potential side effects and complications, including, but not necessarily limited to, infection, allergic reaction, local tissue breakdown, temporary as well as permanent nerve injury, p aralysis, stroke and possible , the patient indicated that the patient understood and agreed to proceed. An informed consent document was signed by the patient, witnessed by a nurse, and placed in the patient's chart. Additionally, other treatment options including modalities, medications, and physical therapy were reviewed with the patient. After review of previous anaesthesic history and IV conscious sedation the patient was deemed safe to proceed with today?s procedure with IV conscious sedation as ASA class II designation. Safety time-out was performed to confirm patient ID, procedure to be performed and site of procedure. IV sedation was not administered by the RN after DO order, titrated to patient comfort during the course of the procedure while the patient remained responsive to all verbal commands. In the prone position, following sterile prep and drape of the lumbar region, the L3/4 translaminar space was identified fluoroscopically. The skin was anesthetized via a 25-gauge, 1.5-inch needle with 1% lidocaine solution. At this point, a 22-gauge short bevel spinal needle was atraumatically introduced and advanced under fluoroscopic guidance into the region of the L3/4 translaminar space. Depth was confirmed on lateral view. Radiological data, including multiple fluoroscopic views of the lumbar spine, reveal a spinal needle at the L3/4 translaminar space. Lateral views then show placement of the needle in the epidural space. Subsequent views show contrast material flowing superiorly and inferiorly in the epidural space. No vascular or intrathecal uptake is observed. At this point, using loss of resistance technique with saline and air, the epidural space was entered. This was confirmed following negative aspiration with injection of approximately 1.5 cc of Isovue 200, showing excellent epidural flow without vascular or intrathecal uptake. At this point, 1cc of 1% lidocaine solution combined with 2cc or 10mg of dexamethasone and 6mg of betamethasone was injected without incident. The patient tolerated the procedure well without signs or symptoms of complications prior to transfer to the recovery area continued monitoring without incident. The patient was then transferred to the recovery area where they were observed for an appropriate period of time after the injection. The patient reported a VAS score of 6 prior to the procedure and a post- procedure VAS of 0. POST OP INSTRUCTIONS The patient was provided a Pain Log to continue to record their response to the target-specific procedure prior to follow-up visit with their referring physician. Additionally, specific post-injection care instructions and a contact number to our office were provided if concerns arise regarding possible complic ations associated with the procedure are suspected.
[2024-11-03] MEDS: MIDAZOLAM 2 MG/2 ML VIAL IV (11:55)
[2024-11-03] MEDS: BUPIVACAINE 0.5% (PF) 10 ML VIAL 5 ML INJ (12:03)
[2024-11-03] MEDS: LIDOCAINE 1% 20 ML 5 ML INJ (12:05)
[2024-11-03] MEDS: iopamidoL 15 ML VIAL 3 ML INJ (12:06)
--- NOTE | 2024-11-03 12:23 | PM.PROC.IR.1 ---
Date/Time/Diagnoses Date of procedure: 11/03/24 Time of procedure: 12:23 Pre-procedure diagnosis: 1. FACET ARTHROPATHY Post-procedure diagnosis: same Procedure Notes Procedure: 1. BILATERAL- L4, L5 and S1 DIAGNOSTIC MB BLOCKS with LA Anesthetic Indications: Jagdeep is referred for treatment of Bilateral Axial LBP. Physician: Roshan Osman Total Fluoroscopy time (seconds): 12 Total sedation minutes: 14 Complications: none Procedure in detail & Post-procedure care: DESCRIPTION OF PROCEDURE Fluoroscopically guided, contrast-controlled bilateral L4, L5 and S1 medial branch blocks with 0.5cc of 0.5% Marcaine. Following review of allergy and review of potential side effects and complications, including, but not necessarily limited to, infection, allergic reaction, local tissue breakdown, nerve injury, paralysis, stroke and possible , the patient indicated that the patient understood and agreed to proceed. An informed consent document was signed by the patient, witnessed by a nurse, and placed in the patient's chart. After review of previous anaesthesic history and IV conscious sedation the patient was deemed safe to proceed with today's procedure with IV conscious sedation as ASA class II designation. Safety time-out was performed to confirm patient ID, procedure to be performed and site of procedure. IV sedation was accomplished with a combination of 2mg of Versed was administered by the RN after DO order, titrated to patient comfort during the course of the procedure while the patient remained responsive to all verbal commands In the prone position, following sterile prep and drape of the lumbar region, the right L4, L5 and S1 anatomical location of the medial branch of the dorsal ramus was identified fluoroscopically. Subsequently an anesthetic skin wheal using 1% lidocaine solution was initiated at each of the anatomical spots. Subsequently then a 22-gauge 3.5-inch spinal needle was atraumatically introduced and advanced under fluoroscopic guidance at each of the corresponding sites at the right L4, L5 and S1 MB. After negative aspiration, 0.2cc of Isovue 200 was injected, confirming placement without vascular or intrathecal uptake. Subsequently then 0.5cc of 0.5% Marcaine solution was injected at each of the corresponding sites at the right L4, L5 and S1 medial branch locations. The identical procedure was replicated on the left. The patient tolerated the procedure well without signs or symptoms of complications prior to transfer to the recovery area continued monitoring without incident. Post-procedure, the patient was monitored initiating provocative activities to measure the amount of relief from block of the facetogenic pain. The patient reported a VAS of 7 prior to the procedure and a post-procedure VAS of 1. It has been a pleasure to assist in the diagnostic and therapeutic care of your patient. POST OP INSTRUCTIONS The patient was provided with a Pain Log to complete over the next several hours and subsequent days prior to the patient's follow up with the ordering physician. If the patient has assistant director of financial aid relief to the solution applied, then they may be a candidate for medial branch rhizotomy. The patient is aware, was provided, once again, with a Pain Log and will follow up with the referring physician for review and clinical correlation
== END 2024-11-03 12:40 | disposition home or self-care (01) ==
PROVIDERS: Referring Provider Physical Medicine & Rehabilitation; Visit Provider Physical Medicine & Rehabilitation
DX: M47.816 Spondylosis without myelopathy or radiculopathy, lumbar region (principal); M47.817 Spondylosis without myelopathy or radiculopathy, lumbosacral region
CPT/HCPCS: 64493; 64494; 99152; J2250

== ENCOUNTER 2024-11-09 16:10 | Emergency (ER) | payer OTHER, SELFPAY ==
[2024-11-09 16:33] VITALS: BP 105/59; PULSE 68; RESP 16; TEMP 36.4; O2SAT 99; BMI 25.1
--- NOTE | 2024-11-09 16:40 | DI.RAD.S_ITS ---
PROCEDURE: XR ANKLE LT MIN 3V INDICATIONS: Ankle pain TECHNIQUE: 3 views of the ankle were acquired. COMPARISON: None. FINDINGS AND IMPRESSION: [id number] tibiotalar and mild midfoot degenerative changes. Plantar calcaneal enthesopathy. No acute displaced fracture or dislocation. Vascular calcifications. Mild ankle effusion. If there is high concern for further derangement, consider MRI evaluation. Dictated by: Cameron Hernandez M.D. on 11/09/2024 at 17:23 Approved by: Cameron Hernandez M.D. on 11/09/2024 at 17:24
--- NOTE | 2024-11-09 19:41 | PC.NURSE ---
Patient in the waiting room waiting to be brought back to a room. This tech went out to the lobby and attempted to get updated vital signs. Patient was very frustrated and stated that I will not let you do anything until I am in a damn room. Patient refused vital signs at 1929. SAVITA chappell
--- NOTE | 2024-11-09 23:43 | ED_ITS ---
HPI - Eye Problem General Chief complaint: Eye Problems Stated complaint: glass in right eye Time Seen by Provider: 11/09/24 22:09 Source: patient Mode of arrival: Wheelchair History of Present Illness HPI Narrative: 73-year-old gentleman presents with multiple complaints today 1. Specifically the right eye he reports breaking glass of a pickup truck at a junkyard and he may have got a piece of glass in his right eye. This happened over 10 days ago his foreign body sensation over it but he has not lost any vision whatsoever there is no drainage or bleeding. Patient also reports 2. Left ankle pain that he has noticed that has been going on for the past few days but he is able to walk on it denies any specific trauma to the area and no previous injuries in the remote past. Other than what is stated 14 point review of system is negative Related Data Home Medications Medication Instructions Recorded Confirmed levothyroxine 88 mcg tablet 88 mcg PO DAILY 08/20/23 10/26/24 tamsulosin 0.4 mg capsule (Flomax) 0.4 mg PO DAILY 08/20/23 10/26/24 Previous Rx's Medication Instructions Recorded calcitonin (salmon) 200 1 spray intranasal (ALT) DAILY 08/31/24 unit/actuation nasal spray sacral fx 3 months #3.7 mL meloxicam 15 mg tablet 15 mg PO DAILY #30 tabs 10/26/24 Allergies Allergy/AdvReac Type Severity Reaction Status Date / Time No Known Drug Allergies Allergy Verified 11/09/24 16:33 Review of Systems Review of Systems ROS Unobtainable: All systems reviewed & are unremarkable except as noted in HPI and below Patient History Medical History (Updated 11/09/24 @ 23:53 by Joe Cantrell DO) Facet arthropathy, lumbar Thoracic back pain Neck pain Low back pain Lumbar foraminal stenosis Lumbar spondylosis Lumbar radiculopathy Hip pain Hereditary and idiopathic neuropathy Compression fracture of L3 vertebra Rib fractures Sacral fracture Compression fracture of L5 vertebra Lower urinary tract symptoms Prostate cancer Peripheral neuropathy Hypertension Traumatic brain injury (~1986) Social History Smoking Status: Never smoker Smoking Status: Never smoker alcohol intake frequency: other Exam Narrative Exam Narrative: GENERAL: [81] year old patient appears stated age. Well-developed patient, in mild distress. HEAD: Atraumatic. Normocephalic. EYES: Pupils equal round and reactive. Extraocular motions intact. No scleral icterus. No injection or drainage. EXTREMITIES: No edema. LLE ankle medial malleoli region mild warmth/ttp, no fluctuance or streaking, motor/sensory intact +2DP +2PT cap refil<2secs BACK: Nontender without deformity or crepitance. No flank tenderness. NEURO: AOx3. SKIN: No rash or erythema of visible areas Initial Vital Signs Initial Vital Signs: Vital Signs Temperature 97.5 F L 11/09/24 16:33 Pulse Rate 68 11/09/24 16:33 Respiratory Rate 16 11/09/24 16:33 Blood Pressure 105/59 L 11/09/24 16:33 Pulse Oximetry 99 11/09/24 16:33 Oxygen Delivery Method Room Air 11/09/24 16:33 Course Orders Ordered: ED Orders 11/09/24 16:40 XR ankle LT min 3V Stat Fluorescein Sodium (Fluorescein 1 Mg Strip) 1 mg EYE-RIGHT NOW PRN PRN Reason: Eye exam Proparacaine HCl (Proparacaine 0.5% Ophth Lanny) 1 drops EYE-RIGHT PRN PRN PRN Reason: eye exam Vital Signs Vital signs: Vital Signs - 8 hr 11/09/24 16:33 Temperature 97.5 F L Pulse Rate 68 Respiratory Rate 16 Blood Pressure 105/59 L Pulse Oximetry 99 Oxygen Delivery Method Room Air MDM - Eye Problem Imaging Data Extremity x-ray #1: Radiologist's Impression: [address] [address] XRay Report Signed Patient: Jagdeep Marquis MR#: [id number] : 1950 Acct:[id number] Age/Sex: 73 / M Date of Service: 11/09/24 Loc: ED Accession Number: [id number] Procedure: XR ankle LT min 3V Ordering Provider: Lyndsay Benites D.O. PROCEDURE: XR ANKLE LT MIN 3V INDICATIONS: Ankle pain TECHNIQUE: 3 views of the ankle were acquired. COMPARISON: None. FINDINGS AND IMPRESSION: [id number] tibiotalar and mild midfoot degenerative changes. Plantar calcaneal enthesopathy. No acute displaced fracture or dislocation. Vascular calcifications. Mild ankle effusion. If there is high concern for further derangement, consider MRI evaluation. MDM Narrative Medical decision making narrative: Vital signs nurse triage note medication list previous ER visits and all imaging studies reviewed. Wood's lamp proparacaine fluorescein strip use no uptake noted. No corneal abrasion or foreign body seen on exam. Patient continues to be symptomatic in the right eye we will have him follow up with eye MD in the morning. X-ray reviewed showing mild to moderate tibiotalar and mid foot degenerative changes. Also plantar calcaneal enthesopathy. No acute displaced fracture or dislocation. Differential diagnosis includes corneal abrasion, blepharitis, foreign body, arthritis, fracture, and dislocation. Discharge Plan Departure Patient Disposition: Home Clinical Impression: Foreign body in eye Qualifiers: Encounter type: initial encounter Laterality: right Qualified Code(s): T15.91XA - Foreign body on external eye, part unspecified, right eye, initial encounter Ankle arthritis Qualifiers: Laterality: left Qualified Code(s): M19.072 - Primary osteoarthritis, left ankle and foot Instructions: DI for Foreign Body in the Eye Activity Restrictions/Additional Instructions: Return with new or worsening symptoms. Follow up with eye doctor in the morning call office for appointment. Prescriptions: No Action calcitonin (salmon) 200 unit/actuation spray,non-aerosol 1 spray intranasal (ALT) DAILY 90 Days Qty: 3.7 2RF Rx Instructions: sacral fx meloxicam 15 mg tablet 15 mg PO DAILY Qty: 30 1RF tamsulosin [Flomax] 0.4 mg capsule 0.4 mg PO DAILY levothyroxine 88 mcg tablet 88 mcg PO DAILY Referrals: Tanner Domingo MD [Physician] - Stand Alone Forms: Patient Portal/API/Survey
== END 2024-11-09 23:58 | disposition home or self-care (01) ==
PROVIDERS: Emergency Provider Family Medicine
DX: T15.91XA Foreign body on external eye, part unspecified, right eye, initial encounter (principal); M19.072 Primary osteoarthritis, left ankle and foot
CPT/HCPCS: 73610; 99281; 99283

== ENCOUNTER → 2025-01-15 10:50 | Outpatient (CLI) | payer OTHER, SELFPAY ==
--- NOTE | 2025-01-15 10:52 | DI.MRI.S_ITS ---
PROCEDURE: MR ANKLE LT WO CON INDICATIONS: LEFT TIBIAL TENDINITIS TECHNIQUE: Noncontrast sagittal T1 spin echo and T2 fast spin echo with fat saturation, axial proton density fast spin echo and T2 fast spin echo with fat saturation, coronal T1 spin echo and T2 fast spin echo with fat saturation through the ankle/hindfoot. COMPARISON: [facility], CR, XR ANKLE LT MIN 3V, 11/09/2024, 16:57. FINDINGS: Image quality: Excellent Tendons: Mild tenosynovitis of the posterior tibialis. Mild tenosynovitis of the flexor digitorum longus. Mild tenosynovitis of the flexor hallucis longus at the master knot of [place]. The extensor tendons are unremarkable. Longitudinal split tear of the peroneal brevis. The peroneal longus is unremarkable. Mild tendinosis of the distal Achilles tendon, without tear. Ligaments: The anterior and posterior tibiofibular ligaments are intact. The anterior and posterior talofibular ligament are intact. The calcaneofibular ligament is unremarkable. The deep portion of the deltoid ligament is unremarkable. Sinus tarsi: No fibrosis Plantar fascia: Marked thickening of the central and lateral cord of the plantar fascia with intermediate signal, representing plantar fasciitis. Muscle: Mild diffuse muscle edema. Moderate fatty atrophy of the abductor digiti minimi, raising concern for denervation. Bones: No acute fracture. Mild marrow edema at the calcaneal tuberosity, favor reactive. Plantar calcaneal enthesophyte without marrow edema. Small tibiotalar and posterior subtalar effusion. IMPRESSION: 1. Mild tenosynovitis of the flexor tendons. 2. Longitudinal split tear of the peroneal brevis. 3. Mild tendinosis of the distal Achilles tendon with mild reactive marrow edema at the calcaneal tuberosity. 4. Plantar fasciitis. Plantar calcaneal enthesophyte. 5. Denervation of the abductor digiti minimi. Dictated by: Maricruz Freeman M.D. on 01/15/2025 at 15:43 Approved by: Maricruz Freeman M.D. on 01/15/2025 at 15:54
== END ==
PROVIDERS: Referring Provider Podiatrist; Visit Provider Podiatrist
DX: M76.822 Posterior tibial tendinitis, left leg (principal); M65.972 Unspecified synovitis and tenosynovitis, left ankle and foot; S96.812A Strain of other specified muscles and tendons at ankle and foot level, left foot, initial encounter; M72.2 Plantar fascial fibromatosis; M77.32 Calcaneal spur, left foot
CPT/HCPCS: 73721